=== PATIENT | female | born 1970 | race Caucasian/White ===

== ENCOUNTER 2021-09-21 13:33 | Emergency (ER) | payer MEDICARE, MEDICAID, SELFPAY ==
[2021-09-21 13:35] VITALS: BP 135/87; PULSE 69; RESP 16; TEMP 36.8; O2SAT 100; BMI 27.4
--- NOTE | 2021-09-21 13:48 | XR_ITS ---
WS: [email or web address] Right leg including the tibia and fibula, AP and lateral views, 09/21/2021 Clinical Data: pain/fall Comparison: None. Findings: No fractures or dislocations are seen. The tibia and fibula are intact. The soft tissues are normal. XR/XR tibia fibula RT 2V 08034 Impression: Negative for fracture.
--- NOTE | 2021-09-21 13:48 | XR_ITS ---
WS: [email or web address] Right ankle, AP and lateral views, 09/21/2021 Clinical Data: fall pain Comparison: None. Findings: No fractures or dislocations are seen. The ankle mortise is normal. The talus and calcaneus are unrem arkable. No soft tissue swelling over the medial or lateral malleolus is seen. XR/XR ankle RT 2V 84424 Impression: Negative right ankle.
--- NOTE | 2021-09-21 13:48 | CT_ITS ---
WS: [email or web address] CT HEAD NONCONTRAST HISTORY: fall TECHNIQUE: Contiguous axial imaging performed through the brain in 2.5 mm imaging. Bone and soft tiss ue windows. Sagittal and coronal reformats reviewed. All CT scans at [facility] use at least one of these dose optimization techniques: automated exposure control; mA and/or kV adjustment per pa tient size (includes targeted exams where dose is matched to clinical indication); or iterative recon struction. DLP: 811.2 mGy.cm COMPARISON: 10/09/2017 Large remote LEFT MCA territory infarct with volume loss and encephalomalacia. Significant progressio n of volume loss since 2018. Tiny lacunar infarct in the RIGHT caudate head and near the RIGHT occipi danielle lobe. These are not acute. Ventricles: Executive dilatation of the LEFT lateral ventricle due to volume loss and encephalomalac ia. No inferior displacement of cerebellar tonsils. Paranasal sinuses: As visualized are clear. Mastoid air cells: Well pneumatized. Calvarium and scalp: Skull is intact with no soft tissue edema or swelling. CT/CT head wo con* [id number] IMPRESSION: 1. No acute intracranial hemorrhage or edema. 2. Large prior LEFT MCA territory infarct with encephalomalacia and ex vacuole dilatation of the lateral ventricle.
--- NOTE | 2021-09-21 13:48 | XR_ITS ---
WS: [email or web address] Right foot, 3 views, 09/21/2021 Clinical Data: fall Comparison: None. Findings: No fractures or dislocations are seen. No bone destruction or erosion is noted. The joint spaces and soft tissues are normal. There is a flexion deformity of the right great toe and the right foot. XR/XR foot RT 2V 64281 Impression: Flexion of the right great toe and the right foot.
--- NOTE | 2021-09-21 13:48 | XR_ITS ---
WS: [email or web address] Right knee, AP and lateral views, 09/21/2021 Clinical Data: knee pain Comparison: None. Findings: No fractures or dislocations are seen. The joint spaces are normal. The patella is intact. The soft t issues are unremarkable. XR/XR knee RT 1-2V 30347 Impression: Negative right knee. Kellgren-Uzair Classification: grade 0 (none): definite absence of x-ray pauly nges of osteoarthritis
--- NOTE | 2021-09-21 13:49 | ECG_ITS ---
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 Measurements Intervals [place] Rate: 69 P: 63 FL: 162 QRS: 81 QRSD: 82 T: 83 QT: 444 QTc: 476 Interpretive Statements SINUS RHYTHM POSSIBLE RIGHT VENTRICULAR CONDUCTION DELAY [RSR (QR) IN V1/V2] ST DEVIATION AND MARKED T-WAVE ABNORMALITY, CONSIDER ANTERIOR ISCHEMIA [-0.5+ mV T-WAVE IN V3/V4] Compared to ECG 10/09/2017 15:16:11 T-wave abnormality now present Possible ischemia now present Electronically Signed On 09-22-2021 5:47:25 CDT by Ya Martinez M.D. [id number]
--- NOTE | 2021-09-21 13:52 | ED_ITS ---
HPI - General Adult General: Chief complaint: Extremity Injury, Lower Stated complaint: FALL Time Seen by Provider: 09/21/21 13:35 History of Present Illness: Patient is a 51-year-old female with history of previous CVA with right-sided hemiparesis, hypertension who presents to the ergency room for evaluation of fall. Patient tells me that she was try to get into her wheelchair when she slipped and fell. Patient complains of right ankle and right knee pain. Patient report hitting her head. Denies any LOC. Patient report feeling lightheaded prior to the episode of fall. Patient denies any anticoagulation use. No associated chest pain, shortness of breath, palpitation, nausea/vomiting, diarrhea melena/hematochezia or complaints. Onset: 9am Duration:once Location:home Severity:moderate Associated symptoms: Deny chest pain, dyspnea, nausea, rash, palpitations or vomiting Review of Systems Const: Denies: fever(s) or chills Eyes: Denies: change in vision ENMT: Denies: mouth pain Card: Denies: chest pain or palpitations Resp: Denies: dyspnea or non-productive cough GI: Denies: abdominal pain, nausea, vomiting or diarrhea : Denies: dysuria Musc: Denies: extremity pain Skin/Breast: Denies: rash or new lesions Neuro: Reports: other (+lightheadedness); Denies: weakness in extremities Psych: Reports: other (Normal mood) Byron/Lymph: Denies: easy bruising PFSH ED PFSH: Medical History CVA, old, aphasia 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 Family History Mother Stroke Social History Smoking and tobacco status: current every day smoker Quit status (tobacco): not considering quitting Smoking risk assessment/counseling performed?: Yes Tobacco counseling given: provider counseling Physical Exam Const: COMMON NORMALS: alert HENMT: COMMON NORMALS: atraumatic HEAD & SCALP: atraumatic MOUTH: moist mucous membranes not abnormal Eye: COMMON NORMALS: EOMs intact bilaterally and conjunctivae normal CONJUNCTIVA: Yes conjunctivae normal Neck/C-Spine: COMMON NORMALS: full ROM and supple Resp: COMMON NORMALS: normal respiratory effort and clear to auscultation bilaterally AUSCULTATION: clear to auscultation bilaterally Cardio: COMMON NORMALS: regular rate RATE: regular rate GI: COMMON NORMALS: Soft to palpation and non-tender PALPATION: Yes Soft to palpation Extremity: COMMON NORMALS: full ROM NARRATIVE EXTREMITY EXAM: + Mild right ankle swelling and tenderness to palpation, neurovascular exam intact on the affected extremity Neuro: SENSORIUM/ORIENTATION: Yes alert OTHER: + Baseline right-sided weakness and hemiparesis Psych: COMMON NORMALS: speech normal SPEECH: Yes normal speech MOOD & AFFECT: Yes euthymic mood Course Vital Signs: Vital signs: Vital Signs Temperature 98.2 F 09/21/21 13:35 Pulse Rate 69 09/21/21 13:35 Respiratory Rate 16 09/21/21 13:35 Blood Pressure 135/87 09/21/21 13:35 Pulse Oximetry 100 09/21/21 13:35 MDM - General Adult Medical Decision Making 51-year-old female history of right-sided hemiparesis from prior CVA, hypertension presenting to the emergency room for evaluation of fall. Unclear if it is mechanical. Patient has mild tenderness palpation of the right ankle with mild swelling. X-ray of the ankle, tib-fib, knee negative for any acute pathology. CT head negative for any acute finding other than chronic left MCA s troke. Patient no complaints of chest pain. Troponin within normal limit. Patient can have T wave versions in V1-V3. I discussed this with patient and have given patient close follow-up with cardiology outpatient for further evaluation of her EKG. As patient did not have any chest pain, troponin within normal limit, do not suspect ACS at this time. I have given patient follow up with our manager of case management to be seen by our outpatient Cardiology for further evaluation of EKG abnormality. Patient aware of a call from our manager of case management to schedule for appointment(s) and verbalizes understanding of the importance of following up. Rx: Tylenol, lidocaine patch, and menthol PRN pain Disposition: Discharge. Patient counseled regarding diagnostic impression, treatment plan. Patient given ED strict return precautions to return for continuation, worsening, or development of new symptoms. Instructed to f/u w/ PCP regarding symptoms today. Patient verbalized understanding. Patient is given written instructions to repeat x-ray should she have further pain in the ankle knee in 1 week. Lab Data : 09/21/21 14:10 09/21/21 15:12 Radiology Impressions Ankle X-Ray 09/21/21 13:48 Impression: Negative right ankle. Foot X-Ray 09/21/21 13:48 Impression: Flexion of the right great toe and the right foot. Head CT 09/21/21 13:48 IMPRESSION: 1. No acute intracranial hemorrhage or edema. 2. Large prior LEFT MCA territory infarct with encephalomalacia and ex vacuole dilatation of the lateral ventricle. Knee X-Ray 09/21/21 13:48 Impression: Negative right knee. Kellgren-Uzair Classification: grade 0 (none): definite absence of x-ray changes of osteoarthritis Tibia/Fibula X-Ray 09/21/21 13:48 Impression: Negative for fracture. Laboratory Results WBC 9.1 10^3/uL (4.0-10.0) 09/21/21 14:10 RBC 4.12 10^6/uL (4.1-5.3) 09/21/21 14:10 Hgb 12.3 g/dL (11.5-15.3) 09/21/21 14:10 Hct 38.6 % (37.0-47.0) 09/21/21 14:10 MCV 93.7 fl (81-99) 09/21/21 14:10 MCH 29.9 pg (28.0-34.0) 09/21/21 14:10 MCHC 31.9 g/dL (30.0-36.0) 09/21/21 14:10 RDW 13.6 % (12.1-15.1) 09/21/21 14:10 Plt Count 187 10^3/cmm (130-400) 09/21/21 14:10 MPV 11.3 fL (7.4-10.4) H 09/21/21 14:10 Neut % (Auto) 60.7 % 09/21/21 14:10 Lymph % (Auto) 27.4 % 09/21/21 14:10 Davis % (Auto) 8.0 % 09/21/21 14:10 Eos % (Auto) 2.7 % 09/21/21 14:10 Baso % (Auto) 0.9 % 09/21/21 14:10 Neut # (Auto) 5.53 10^3/uL (1.8-7.7) 09/21/21 14:10 Lymph # (Auto) 2.5 10^3/uL (0.8-4.8) 09/21/21 14:10 Davis # (Auto) 0.7 10^3/uL (0.2-0.9) 09/21/21 14:10 Eos # (Auto) 0.3 10^3/uL (0.0-0.8) 09/21/21 14:10 Baso # (Auto) 0.1 10^3/uL (0.0-0.1) 09/21/21 14:10 Nucleated RBC % (auto) 0 % 09/21/21 14:10 Nucleated RBCs # 0.0 /100WBC 09/21/21 14:10 Sodium 137 mmol/L (136-145) 09/21/21 15:12 Potassium 5.2 mmol/L (3.5-5.1) H 09/21/21 15:12 Chloride 102 mmol/L (98-107) 09/21/21 15:12 Carbon Dioxide 26 mmol/L (22-29) 09/21/21 15:12 Anion Gap 14.2 (5-19) 09/21/21 15:12 BUN 19 mg/dL (6-20) 09/21/21 15:12 Creatinine 1.3 mg/dL (0.5-0.9) H 09/21/21 15:12 GFR Calculation 43.0 mL/min (90-130) L 09/21/21 15:12 Glucose 104 mg/dL (65-115) 09/21/21 15:12 Calculated Osmolality 287 mOsm/kg (285-295) 09/21/21 15:12 Calcium 9.5 mg/dL (8.5-10.5) 09/21/21 15:12 Troponin T Baseline 10 ng/L (0-10) 09/21/21 15:12 Imaging Data Other Imaging: Radiologist's impression: [address] [address] XRay Report Signed Patient: Erin Salazar Unit #: [id number] : 1970 Age/Sex: 51 / F ADM Date: 09/21/21 Loc: ER Room/Bed: Attending Dr: Ordering Provider/Ordering MD: Loida Chandler MD Date of Service: 09/21/21 Procedure(s): XR tibia fibula RT 2V 97274 Accession Number(s): [id number] Report Number: [id number] WS: [email or web address] Right leg including the tibia and fibula, AP and lateral views, 09/21/2021 Clinical Data: pain/fall Comparison: None. Findings: No fractures or dislocations are seen. The tibia and fibula are intact. The soft tissues are normal. XR/XR tibia fibula RT 2V 94079 Impression: Negative for fracture. ? Dictated By: Idalmis Nair MD Signed By: Idalmis Nair MD Signed Date/Time: 09/21/211430 DD/ [address] [address] XRay Report Signed Patient: Erin Salazar Unit #: [id number] : 1970 Age/Sex: 51 / F ADM Date: 09/21/21 Loc: ER Room/Bed: Attending Dr: Ordering Provider/Ordering MD: Loida Chandler MD Date of Service: 09/21/21 Procedure(s): XR knee RT 1-2V 36223 Accession Number(s): [id number] Report Number: [id number] WS: [email or web address] Right knee, AP and lateral views, 09/21/2021 Clinical Data: knee pain Comparison: None. Findings: No fractures or dislocations are seen. The joint spaces are normal. The patella is intact. The soft tissues are unremarkable. XR/XR knee RT 1-2V 22303 Impression: Negative right knee. ? Kellgren-Uzair Classification: grade 0 (none): definite absence of x-ray changes of osteoarthritis ? Dictated By: Idalmis Nair MD Signed By: Idalmis Nair MD Signed Date/Time: 09/21/211441 DD/ [address] [place] [id number] CT Scan Report Signed Patient: Erin Salazar Unit #: [id number] : 1970 Age/Sex: 51 / F ADM Date: 09/21/21 Loc: ER Room/Bed: Attending Dr: Ordering Provider/Ordering MD: Loida Chandler MD Date of Service: 09/21/21 Procedure(s): CT head wo con* 57811 Accession Number(s): [id number] Report Number: [id number] WS: [email or web address] CT HEAD NONCONTRAST HISTORY: fall TECHNIQUE: Contiguous axial imaging performed through the brain in 2.5 mm imaging. Bone and soft tissue windows. Sagittal and coronal reformats reviewed.? All CT scans at [facility] use at least one of these dose optimization techniques: automated exposure control; mA and/or kV adjustment per patient size (includes targeted exams where dose is matched to clinical indication); or iterative reconstruction. DLP: 811.2 mGy.cm COMPARISON: 10/09/2017 Large remote LEFT MCA territory infarct with volume loss and encephalomalacia. Significant progression of volume loss since 2018. Tiny lacunar infarct in the RIGHT caudate head and near the RIGHT occipital lobe. These are not acute. Ventricles:? Executive dilatation of the LEFT lateral ventricle due to volume loss and encephalomalacia. No inferior displacement of cerebellar tonsils. Paranasal sinuses: As visualized are clear. Mastoid air cells: Well pneumatized. Calvarium and scalp: Skull is intact with no soft tissue edema or swelling. CT/CT head wo con* [id number] IMPRESSION: ? 1.? No acute intracranial hemorrhage or edema. 2.? Large prior LEFT MCA territory infarct with encephalomalacia and ex vacuole dilatation of the lateral ventricle. ? Dictated By: Sylvie Vieira DO Signed By: Sylvie Vieira DO Signed Date/Time: 09/21/211448 DD/ [address] [place] [address] XRay Report Signed Patient: Erin Salazar Unit #: [id number] : 1970 Age/Sex: 51 / F ADM Date: 09/21/21 Loc: ER Room/Bed: Attending Dr: Ordering Provider/Ordering MD: Loida Chandler MD Date of Service: 09/21/21 Procedure(s): XR foot RT 2V 63516 Accession Number(s): [id number] Report Number: [id number] WS: [email or web address] Right foot, 3 views, 09/21/2021 Clinical Data: fall Comparison: None. Findings: No fractures or dislocations are seen. No bone destruction or erosion is noted. The joint spaces and soft tissues are normal. There is a flexion deformity of the right great toe and the right foot. XR/XR foot RT 2V 57597 Impression: Flexion of the right great toe and the right foot. ? Dictated By: Idalmis Nair MD Signed By: Idalmis Nair MD Signed Date/Time: 09/21/21 143 DD/ [address] [address] XRay Report Signed Patient: Erin Salazar Unit #: [id number] : 1970 Age/Sex: 51 / F ADM Date: 09/21/21 Loc: ER Room/Bed: Attending Dr: Ordering Provider/Ordering MD: Loida Chandler MD Date of Service: 09/21/21 Procedure(s): XR ankle RT 2V 60658 Accession Number(s): [id number] Report Number: [id number] WS: [email or web address] Right ankle, AP and lateral views, 09/21/2021 Clinical Data: fall pain Comparison: None. Findings: No fractures or dislocations are seen. The ankle mortise is normal. The talus and calcaneus are unremarkable. No soft tissue swelling over the medial or lateral malleolus is seen. XR/XR ankle RT 2V 92053 Impression: Negative right ankle. ? Dictated By: Idalmis Nair MD Signed By: Idalmis Nair MD Signed Date/Time: 09/21/21 143 DD/ 1430 Discharge Plan Discharge Patient Disposition: Home Clinical Impression: Fall Condition: Stable Prescriptions: New acetaminophen 500 mg tablet 500 mg PO Q6H PRN (Reason: pain) 5 Days Qty: 20 0RF lidocaine 5 % adhesive patch,medicated 1 patch topical DAILY PRN (Reason: pain) 30 Days Qty: 30 0RF Rx Instructions: leave on most painful area for up to 12 hrs Biofreeze (menthol) 5 % gel 1 ea topical BID PRN (Reason: pain) 10 Days Qty: 1 0RF No Action (DME) custom molded AFO to the right See Rx Instructions .Route .MEDSUPPLY Qty: 1 0RF Rx Instructions: As directed by [employer] (DME) custom molded AFO to the right See Rx Instructions .Route .MEDSUPPLY Qty: 1 0RF Rx Instructions: As directed by [facility] nystatin [Nystop] 100,000 unit/gram powder See Rx Instructions .ROUTE .COMPLEX Qty: 60 0RF Dose Instruction: APPLY 1 APPLICATION TOPICALLY TWICE DAILY Rx Instructions: APPLY 1 APPLICATION TOPICALLY TWICE DAILY azithromycin [Zithromax Z-Ananda] 250 mg tablet See Rx Instructions PO .COMPLEX Qty: 6 0RF Rx Instructions: take 500 mg today (day 1), then 250 mg for 4 days (days 2-5) PO clotrimazole [Antifungal (clotrimazole)] 1 % cream 1 applic topical BID 28 Days Qty: 30 0RF (DME) wheelchair See Rx Instructions .Route .MEDSUPPLY Qty: 1 0RF Rx Instructions: As directed fluoxetine 20 mg capsule See Rx Instructions .ROUTE .COMPLEX Qty: 90 0RF Dose Instruction: Take 1 capsule by mouth once daily Rx Instructions: Take 1 capsule by mouth once daily atorvastatin 80 mg tablet See Rx Instructions .ROUTE .COMPLEX Qty: 90 0RF Dose Instruction: Take 1 tablet by mouth once daily Rx Instructions: Take 1 tablet by mouth once daily fluoxetine 10 mg capsule See Rx Instructions .ROUTE .COMPLEX Qty: 90 0RF Dose Instruction: Take 1 capsule by mouth once daily Rx Instructions: Take 1 capsule by mouth once daily metoprolol tartrate 25 mg tablet See Rx Instructions .ROUTE .COMPLEX Qty: 90 0RF Dose Instruction: Take 1 tablet by mouth once daily Rx Instructions: Take 1 tablet by mouth once daily fluconazole 150 mg tablet See Rx Instructions .ROUTE .COMPLEX Qty: 7 0RF Dose Instruction: TAKE 1 TABLET BY MOUTH EVERY 3 DAYS FOR 2 DOSES Rx Instructions: TAKE 1 TABLET BY MOUTH EVERY 3 DAYS FOR 2 DOSES Discharge Orders: Discharge ED (Routine); Ordered 09/21/21 Ordered By: Loida Chandler Referrals: Vida Hollingsworth FNP [Primary Care Provider] - Steven Barone FNP [Nurse Practitioner] - Discharge Diet: Advance as tolerated Discharge Activity: Increase activity as tolerated Patient Instructions: Fall Prevention (ED) Activity Restrictions/Additional Instructions: Please follow-up with your primary care provider in 1 week if should you have further ankle pain or knee pain as you may need a repeat x-ray to determine whether he have a fracture. Come back to the emergency room have any new or concerning complaints. Our manager of case management will have you follow-up with Cardiology in the next few days for your EKG findings. You would be expected to have a phone call with our manager of case management who will put you on the schedule. You can expect a call from us in the next 2-3 days. If you don't hear from us, call us back in the emergency room at [phone]. Come back to the emergency room if your chest pain worsens, have any fever or chills, worsening shortness of breath, worsening exertional lightheadedness, or any new or concerning complaints. 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
[2021-09-21 14:29] LABS: Basophils # 0.1 10^3/uL (0.0-0.1); Basophils % 0.9 %; Eosinophils # 0.3 10^3/uL (0.0-0.8); Eosinophils % 2.7 %; Hematocrit 38.6 % (37.0-47.0); Hemoglobin 12.3 g/dL (11.5-15.3); Lymphocytes # 2.5 10^3/uL (0.8-4.8); Lymphocytes % 27.4 %; Mean Corpuscular HGB Conc 31.9 g/dL (30.0-36.0); Mean Corpuscular Hemoglobin 29.9 pg (28.0-34.0); Mean Corpuscular Volume 93.7 fl (81-99); Mean Platelet Volume 11.3 fL (7.4-10.4); Monocytes # 0.7 10^3/uL (0.2-0.9); Neutrophils # 5.53 10^3/uL (1.8-7.7); Neutrophils % 60.7 %; Nucleated Red Blood Cells % 0 %; Platelet Count 187 10^3/cmm (130-400); Red Blood Count 4.12 10^6/uL (4.1-5.3); Red Cell Distribution Width 13.6 % (12.1-15.1); White Blood Count 9.1 10^3/uL (4.0-10.0)
[2021-09-21 15:41] LABS: Troponin(5th) Baseline 10 ng/L (0-10)
[2021-09-21 15:42] LABS: Anion Gap 14.2 (5-19); Blood Urea Nitrogen 19 mg/dL (6-20); Calcium 9.5 mg/dL (8.5-10.5); Carbon Dioxide 26 mmol/L (22-29); Chloride 102 mmol/L (98-107); Glucose 104 mg/dL (65-115); Osmolality Calculated 287 mOsm/kg (285-295); Potassium 5.2 mmol/L (3.5-5.1); Sodium 137 mmol/L (136-145)
--- NOTE | 2021-09-21 15:49 | ECG_ITS ---
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 Measurements Intervals [place] Rate: 69 P: 64 ID: 167 QRS: 82 QRSD: 86 T: 89 QT: 435 QTc: 467 Interpretive Statements SINUS RHYTHM POSSIBLE RIGHT VENTRICULAR CONDUCTION DELAY [RSR (QR) IN V1/V2] ST DEVIATION AND MARKED T-WAVE ABNORMALITY, CONSIDER ANTERIOR ISCHEMIA [-0.5+ mV T-WAVE IN V3/V4] Compared to ECG 09/21/2021 13:00:32 No significant changes Electronically Signed On 09-22-2021 6:02:22 CDT by Ya Martinez M.D. [email or web address]/[id number]
--- NOTE | 2021-09-22 12:34 | DCPLANNER ---
Addendum entered by Medina Barth 11/28/21 13:19: Patient had a follow up appointment scheduled for 11.20.21 with heart care - patient did not attend appointment. Addendum entered by Medina Barth 10/26/21 17:06: Patient has a follow up appointment scheduled for Saturday, November 20, 2021 at 11:[address] Martinez at [facility]. Clinic will call patient with appointment information. Original Note: partner marketing manager had message to schedule a follow up appointment for patient with cardiology. partner marketing manager sent patients information to the front office staff at [facility]. Patients information will be printed and reviewed. Clinic will call patient with appointment information.
== END 2021-09-21 20:20 | disposition home or self-care (01) ==
PROVIDERS: Emergency Provider Emergency Medicine; PCP Nurse Practitioner Family
DX: I69.351 Hemiplegia and hemiparesis following cerebral infarction affecting right dominant side (principal); M25.571 Pain in right ankle and joints of right foot; M25.561 Pain in right knee; I10 Essential (primary) hypertension; W01.0XXA Fall on same level from slipping, tripping and stumbling without subsequent striking against object, initial encounter
CPT/HCPCS: 70450; 73560; 73590; 73600; 73620; 80048; 84484; 85025; 93005; 99285

== ENCOUNTER → 2022-06-06 08:36 | Outpatient (BNVA) | payer MEDICARE, MEDICAID, SELFPAY | PROVIDERS: PCP Nurse Practitioner Family; Visit Provider Nurse Practitioner Family | DX: I10 Essential (primary) hypertension (principal); I69.961 Other paralytic syndrome following unspecified cerebrovascular disease affecting right dominant side | CPT/HCPCS: 80053; 80061 ==

== ENCOUNTER → 2023-02-05 09:24 | Outpatient (BNVA) | payer MEDICARE, MEDICAID, SELFPAY | PROVIDERS: PCP Nurse Practitioner Family; Visit Provider Nurse Practitioner Family | DX: E78.5 Hyperlipidemia, unspecified (principal) | CPT/HCPCS: 80053; 80061 ==

== ENCOUNTER 2023-09-25 10:00 | Inpatient (IN) | payer MEDICARE, MEDICAID, SELFPAY ==
[2023-09-25] VITALS (72 sets, daily range): BP systolic 70–129; BP diastolic 30–106; PULSE 111–150; RESP 11–24; TEMP 35.8–36.2; O2SAT 33–100
--- NOTE | 2023-09-25 10:07 | CTR_ITS ---
PROCEDURE INFORMATION: Exam: CT Head Without Contrast Exam date and time: 09/25/2023 10:12 AM Age: 53 years old Clinical indication: Stroke-like symptoms; Speech disturbance; Additional info: Symptoms of acute stroke TECHNIQUE: Imaging protocol: Computed tomography of the head without contrast. Radiation optimization: All CT scans at this facility use at least one of these dose optimization techniques: automated exposure control; mA and/or kV adjustment per patient size (includes targeted exams where dose is matched to clinical indication); or iterative reconstruction. Other technique: STROKE PROTOCOL was implemented. COMPARISON: CT head wo con* [id number] 09/21/2021 2:33 PM RADIATION DOSE METRICS: Total DLP (mGy-cm): 3.7 FINDINGS: Brain: Redemonstrated encephalomalacia in the left MCA territory. There appears to be mildly increased hypodensity in the left parietal region compared to 09/21/2021. No acute hemorrhage. No mass effect or midline shift. Cerebral ventricles: No ventriculomegaly. Paranasal sinuses: Visualized sinuses are unremarkable. No fluid levels. Mastoid air cells: Visualized mastoid air cells are well aerated. Bones: Unremarkable. No acute fracture. Soft tissues: Unremarkable. CT/CT head thrombolytic [id number] IMPRESSION: There appears to be mildly increased hypodensity in the left parietal region compared to 09/21/2021, which may reflect an area of age-indeterminate ischemia. MRI could further evaluate for acute ischemia. No acute hemorrhage. ASSESSMENT: ASPECTS ([place] Stroke Program Early CT Score) is 4.
--- NOTE | 2023-09-25 10:07 | ECG_ITS ---
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 Measurements Intervals [place] Rate: 113 P: 0 ID: 0 QRS: 112 QRSD: 86 T: 92 QT: 359 QTc: 494 Interpretive Statements ATRIAL FIBRILLATION WITH RAPID VENTRICULAR RESPONSE POSSIBLE RIGHT VENTRICULAR HYPERTROPHY [SOME/ALL OF: PROMINENT R IN V1, LATE TRANSITION, RAD, CHENTE, SSS] MODERATE ST DEPRESSION [0.05+ mV ST DEPRESSION] Compared to ECG 09/21/2021 14:40:14 Atrial abnormality now present ST (T wave) deviation now present Sinus rhythm no longer present T-wave abnormality no longer present Possible ischemia no longer present Electronically Signed On 09-27-2023 13:28:30 CDT by Salty Whyte M.D. [id number]
--- NOTE | 2023-09-25 10:14 | ED_ITS ---
HPI - General Adult 2 General: Chief complaint: Neuro Symptoms/Deficit Stated complaint: Abd Pain Time Seen by Provider: 09/25/23 10:06 Source: patient Mode of arrival: EMS History of Present Illness: 53-year-old female presents emergency ro om initially with complaints of abdominal pain. She has had abdominal pain last couple of days she was seen by home health today they were concerned about her abdominal pain and sent her to the emergency room. When the nurse seen her initially she was enunciating clearly was able to give her name and birthdate and answer questions when she went back in the room the patient had begun to mumble and cannot give understandable answers. Stroke alert was called Dr. Anand seen and patient ultimately decided not to give tPA as patient was having waxing and waning symptoms. Her abdominal pain was worked up further see below. She denies chest pain and abdominal pain has been ongoing for the last 3 days. No family members were present initially to assist with history on the patient. 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, old, aphasia Family History Mother Stroke Social History Smoking and tobacco/nicotine status: current every day tobacco/nicotine user Quit status (tobacco/nicotine): not considering quitting Physical Exam 2 Const: GENERAL APPEARANCE: cooperative ORIENTATION/CONSCIOUSNESS: Yes awake HENMT: COMMON NORMALS: normocephalic, atraumatic and hearing grossly normal bilaterally HEAD & SCALP: normocephalic and atraumatic Resp: COMMON NORMALS: normal respiratory effort, No retractions, No use of accessory muscles and clear to auscultation bilaterally AUSCULTATION: clear to auscultation bilaterally Cardio: COMMON NORMALS: regular rhythm and No murmurs present (Cardio) R ATE: tachycardic RHYTHM: regular rhythm GI: COMMON NORMALS: No hepatosplenomegaly present AUSCULTATION: Yes normoactive bowel sounds PALPATION: Yes Tenderness to palpation present (GI) Details: RUQ (/Epigastric), No Guarding due to palpation present (GI) and Yes No hepatosplenomegaly present Extremity: COMMON NORMALS: normal to inspection, capillary refill normal, no clubbing, cyanosis or edema, no calf tenderness and no pedal edema Skin: COMMON NORMALS: no rashes or lesions noted GENERAL SKIN EXAM: no rashes or lesions noted Procedures Central Line Placement Right IJ: Patient Placed on Monitor/Pulse Ox: Yes MD Prep: mask, gown and gloves Central Line Prep: Chlorhexidine scrub Local Anesthetic: lidocaine 1% Amount of anesthesia used (mL): 4 Ultrasound Used for Placement: Yes Central Line Lumen Inserted: triple Post Procedure: sutured in place, good blood return, all ports aspirated, flushed, capped and sterile dressing applied Post Procedure X-Ray: tip of catheter in good position Patient Tolerated Procedure: well Complications: none Intubation sedative: Etomidate Mg Given: 20 paralytic: Vecuronium Mg Given: 10 Laryngoscope: fiber optic video scope ET Tube Size: 8 ET Tube Uncuffed: No Tube Secured Depth (cm): 21 Tube Secured Location: teeth Tube Placement Confirmation: visualized tube passing through cords, equal breath sounds bilaterally, no breath sounds over epigastrium and confirmation by capnometry Patient Tolerated Procedure: well Intubation Complications: none Additional Comments: After chest x-ray ET tube was advanced on CT it had been advanced too far was retracted 3 cm good breath sounds bilaterally even while the tube was at the shaan. Course 2 Vital Signs: Vital signs: Vital Signs Pulse Rate 113 H 09/25/23 16:55 Respiratory Rate 16 09/25/23 16:55 Blood Pressure 129/106 09/25/23 16:45 Pulse Oximetry 67 L 09/25/23 16:55 Oxygen Delivery Me thod Room Air 09/25/23 10:47 Fraction of Inspir ed Oxygen 100 09/25/23 14:08 [facility] - General Adult Medical Decision Making 09/25/2023 3:15 PM Patient continued to deteriorate and did not respond to fluids. She has signs of cholecystitis there is no sign of obstruction in the gallbladder. There is no dilation of the common bile duct with intrahepatic ducts. We consented the patient on a central line went to put it and she got very agitated during placement of central line she is given milligram Ativan as we are nearing completion with a central line she began to have sonorous respirations. We quickly secured the central line. Patient did not respond further and began to have worsening respirations and some mottling. We had difficult time securing blood pressure. Patient was emergently intubated by RSI. There is no family present and she does not have a CODE STATUS on her chart. Patient is intubated without difficulty chest x-ray confirmed placement of ET tube and central line. We did not need any further sedation as patient continues to be nonresponsive. Blood gas was done with the assistance of ultrasound to identify artery in the arm blood gas results showed significant acidosis. We continued to titrate up on pressors added vasopressin. Suspect patient may have thrown a PE with her rapid decompensation. We had discussed with Dr. Irving and Dr. Velasquez about admitting her to ICU for sepsis and acute cholecystitis. Admission on hold while we further evaluate. Will go ahead with a CTA of the chest to evaluate for PE. I contacted the significant other again advised him of the patient's worsening condition. He stated she would not want any further aggressive measures taken. While he would did not request withdrawal of life support did not want us to do any further resuscitative efforts in terms of CPR or ACLS protocols. He is going to contact the siblings of the patient to reach out to us as well. I did encourage the significant other to come to the hospital to see the patient he asked that we contact him once the CT of the chest was done. CTA of the chest did not show acute PE but does only really good study centrally. There is a lot of right heart strain. She has not responded to pressors we have titrated up on Levophed add vasopressin now added epinephrine as well. Is doing very difficult to get peripheral sats or peripheral blood pressures. Family reported they want her add Do Not Recussitate they do not wish to withdraw life support at this time did not want any further aggressive interventions. Dr. Menjivar was consulted for critical care he agreed with the current treatments recommended continuing pressors and antibiotics. Additionally recommended a echocardiogram we did recommend to go ahead and proceed with heparin weight-based protocol he is suspicious as well of a PE especially with the right heart strain and sudden decompensation. I think the root cause of all her issues at this point is septic shock from her gallbladder she may have a ascending cholangitis although there is no dilation of intrahepatic or common bile duct at this point. On the CT there also appears to be some peripancreatic inflammation although her lipase is not elevated yet. We discussed with the significant other who is at the bedside. He is aware of her prognosis which is very poor at this point. Will admit to Dr. Victoria orders written Dr. Menjivar to consult. Medical Records I reviewed the patient's medical records. Lab Data I reviewed the patient's lab results. 09/25/23 10:30 09/25/23 10:[address] 09/25/23 10:07 IMPRESSION: There appears to be mildly increased hypodensity in the left parietal region compared to 09/21/2021, which may reflect an area of age-indeterminate ischemia. MRI could further evaluate for acute ischemia. No acute hemorrhage. ASSESSMENT: ASPECTS ([place] Stroke Program Early CT Score) is 4. Abdomen/Pelvis CT 09/25/23 10:39 IMPRESSION: Some rounded areas of consolidation in the bilateral lower lobes may reflect pneumonia. Otherwise, no acute findings. Gallbladder Ultrasound 09/25/23 11:26 IMPRESSION: 1. Mild thickening of the gallbladder nolasco with minimal edema. Early acute cholecystitis not excluded. Single 2 mm stone and sludge seen in the neck of the gallbladder. No para cholecystic fluid. No intra or extrahepatic ductal dilatation. 2. Incidental finding of moderate atrophy of the RIGHT kidney. Chest X-Ray 09/25/23 13:39 IMPRESSION: 1. ET tube in satisfactory position. RIGHT sided IJ line ending in the RIGHT atrium. 2. Cardiac enlargement unchanged. No acute finding. Chest CTA 09/25/23 14:36 IMPRESSION: 1. Limited study. No obvious pulmonary embolism seen. 2. Tip of endotracheal tube projects at origin right mainstem bronchus. 3. Cardiomegaly. Small amount of pericardial fluid. Prominent left atrium. Extensive reflux, enhancement of contrast material into inferior vena cava, hepatic veins suggesting right heart dysfunction. Correlate for pulmonary arterial hypertension. 4. Pulmonary interstitial and airspace opacities. Patchy ground-glass opacities portions of lungs bilaterally. Infiltrate and/or atelectasis lower lobes, lung bases bilaterally. Configuration left lower lobe possibly due to pulmonary edema, infiltrates, atelectasis, scarring, but 4 cm cavitating lesion or other process not excluded. 5. Haziness, stranding, fluid of soft tissues, ascites, correlate for congestive heart failure or other fluid overload condition. 6. Gallbladder ill-defined, but evidence of marked gallbladder wall thickening and/or edema with mildly dense material within gallbladder, slight ascites, pericholecystic fluid. Correlate for cholecystitis, acute and/or chronic. Neoplasm or other process possible. Common duct not well defined. Correlation with ultrasound scan and/or MRI with MRCP recommended. 7. Peripancreatic fluid. Correlate for pancreatitis or other process. 8. Central venous line partially included, appearing to follow right internal jugular venous route with tip projecting right atrium. 9. Evidence of lymphadenopathy. 10. Please see body of report. ADDENDUM: 09/25/23 [id number] COMMENT: THIS REPORT CONTAINS FINDINGS THAT MAY BE CRITICAL TO PATIENT CARE. The exam findings were verbally communicated by me to NEHEMIAH BLANTON via telephone conference at 4:24 PM CDT on 09/25/2023. The findings were acknowledged and understood. Laboratory Results WBC 11.18 10^3/uL (3.29-11.43) 09/25/23 10:30 RBC 4.03 10^6/uL (3.85-5.65) 09/25/23 10:30 Hgb 11.10 g/dL (11.27-16.99) L 09/25/23 10:30 Hct 38.4 % (36-47) 09/25/23 10:30 MCV 95.3 fl (85-98) 09/25/23 10:30 MCH 27.5 pg (27-33) 09/25/23 10:30 MCHC 28.9 g/dL (30-55) L 09/25/23 10:30 RDW 20.3 % (12.1-15.1) H 09/25/23 10:30 Plt Count 119 10^3/cmm (157-399) L 09/25/23 10:30 MPV 11.6 fL (7.4-10.4) H 09/25/23 10:30 Neut % (Auto) 75.6 % 09/25/23 10:30 Lymph % (Auto) 13.9 % 09/25/23 10:30 [place] % (Auto) 8.6 % 09/25/23 10:30 Eos % (Auto) 0.8 % 09/25/23 10:30 Baso % (Auto) 0.5 % 09/25/23 10:30 Neut # (Auto) 8.45 10^3/uL (1.8-7.7) H 09/25/23 10:30 Lymph # (Auto) 1.6 10^3/uL (0.8-4.8) 09/25/23 10:30 [place] # (Auto) 1.0 10^3/uL (0.2-0.9) H 09/25/23 10:30 Eos # (Auto) 0.1 10^3/uL (0.0-0.8) 09/25/23 10:30 Baso # (Auto) 0.1 10^3/uL (0.0-0.1) 09/25/23 10:30 Nucleated RBC % (auto) 6.8 % 09/25/23 10:30 Nucleated RBCs # 0.8 /100WBC 09/25/23 10:30 PT 20.10 SECONDS (12.1-14.9) H 09/25/23 10:30 INR 1.65 (0.8-1.2) H 09/25/23 10:30 APTT 39.1 SECONDS (23.9-36.7) H 09/25/23 10:30 Specimen Type Arterial 09/25/23 16:35 Sample Site Radial, right 09/25/23 16:35 ABG pH 7.01 (7.35-7.45) L* 09/25/23 16:35 ABG pCO2 50.4 mmHg (35-45) H 09/25/23 16:35 ABG pO2 31.6 mmHg (80.0-100.0) L* 09/25/23 16:35 ABG PO2/FiO2 Ratio 0 09/25/23 16:35 ABG HCO3 12.6 mmol/L (22-26) L 09/25/23 16:35 ABG O2 Saturation 34.3 09/25/23 16:35 ABG Base Excess -18.3 mmol/L (-2.0-2.0) L 09/25/23 16:35 Dontrell Test Pos 09/25/23 16:35 A-a O2 Gradient 81.2 mmHg (5-10) H 09/25/23 16:35 Hematocrit 37.9 % (37-47) 09/25/23 16:35 Hgb O2 Saturation 33.7 % (95-100) L 09/25/23 16:35 Carboxyhemoglobin 1.0 %THgb (0.4-20.1) 09/25/23 16:35 Methemoglobin 0.8 % (0.4-1.5) 09/25/23 16:35 Total Hemoglobin 12.4 g/dL (12-16) 09/25/23 16:35 Sodium 132.0 mmol/L (131-143) 09/25/23 16:35 Potassium 5.4 mmol/L (3.5-5.0) H 09/25/23 16:35 Glucose 157.0 mg/dL (70-115) H 09/25/23 16:35 Ionized Calcium 1.1 mmol/L (1.1-1.4) 09/25/23 16:35 O2 Delivery Device Vent 09/25/23 16:35 FiO2 100.0 % 09/25/23 16:35 Tidal Volume 0.45 09/25/23 16:35 PEEP 6.0 cmH20 09/25/23 16:35 Telegraph Office Telephone Clerk ID Gd 09/25/23 16:35 Sodium 135 mmol/L (136-145) L 09/25/23 10:30 Potassium 5.1 mmol/L (3.5-5.1) 09/25/23 10:30 Chloride 100 mmol/L (98-107) 09/25/23 10:30 Carbon Dioxide 15 mmol/L (22-29) L 09/25/23 10:30 Anion Gap 25.1 (5-19) H 09/25/23 10:30 BUN 87 mg/dL (6-20) H* D 09/25/23 10:30 Creatinine 2.8 mg/dL (0.5-0.9) H 09/25/23 10:30 GFR Calculation 17.6 mL/min (90-130) L 09/25/23 10:30 Glucose 112 mg/dL (65-115) 09/25/23 10:30 POC Glucose 128 mg/dL (70-110) H 09/25/23 10:22 Calculated Osmolality 307 mOsm/kg (285-295) H 09/25/23 10:30 Lactic Acid 3.0 mmol/L (0.5-2.2) H 09/25/23 12:09 Lactic Acid (Sepsis) 7.4 mmol/L (0.5-2.2) H* 09/25/23 14:45 Calcium 7.4 mg/dL (8.5-10.5) L 09/25/23 10:30 Total Bilirubin 1.7 mg/dL (0.15-1.2) H 09/25/23 10:30 AST 898 U/L (0-32) H 09/25/23 10:30 ALT 884 U/L (0-33) H 09/25/23 10:30 Alkaline Phosphatase 345 U/L (35-105) H 09/25/23 10:30 Total Protein 6.1 g/dL (6.6-8.7) L 09/25/23 10:30 Albumin 3.0 g/dL (3.5-5.2) L 09/25/23 10:30 Globulin 3.1 g/dL (1.3-4.6) 09/25/23 10:30 Lipase 59 U/L (13-60) 09/25/23 10:30 Urine Color Yellow (Yellow) 09/25/23 11:45 Urine Appearance Cloudy (CLEAR) A 09/25/23 11:45 Urine pH 5 (5-7) 09/25/23 11:45 Ur Specific [place] 1.020 (1.005-1.030) 09/25/23 11:45 Urine Protein 1+ (Negative) H 09/25/23 11:45 Urine Glucose (UA) Norm (Normal) 09/25/23 11:45 Urine Ketones Negative (Negative) 09/25/23 11:45 Urine Blood 2+ (Negative) H 09/25/23 11:45 Urine Nitrate Negative (Negative) 09/25/23 11:45 Urine Bilirubin Neg (Negative) 09/25/23 11:45 Urine Urobilinogen 1 mg/dL (Negative) H 09/25/23 11:45 Ur Leukocyte Esterase 1+ (Negative) H 09/25/23 11:45 Urine RBC 0-4 /hpf (0-2) H 09/25/23 11:45 Urine WBC 0-4 /hpf (0-5) H 09/25/23 11:45 Ur Squamous Epith Cells 0-4 /hpf (0-5) H 09/25/23 11:45 Amorphous Sediment Not Reportable 09/25/23 11:45 Urine Bacteria 1+ /hpf (NONE) H 09/25/23 11:45 Urine Opiates Screen Negative ng/mL (Negative) 09/25/23 11:45 Ur Barbiturates Screen Negative ng/mL (Negative) 09/25/23 11:45 Ur Phencyclidine Scrn Negative ng/mL (Negative) 09/25/23 11:45 Ur Amphetamines Screen Negative ng/mL (Negative) 09/25/23 11:45 U Benzodiazepines Scrn Negative ng/mL (Negative) 09/25/23 11:45 Urine Cocaine Screen Negative ng/mL (Negative) 09/25/23 11:45 U Marijuana (THC) Screen Negative ng/mL (Negative) 09/25/23 11:45 All radiology interpretation(s) finalized by discharge Critical Care Time 2 Critical Care Time: Critical Care Time: Yes Total Critical Care Time: 75 Attestation: The high probability of a clinically significant, sudden or life threatening deterioration of the patient's cardiovascular respiratory GI system(s) required my full and direct attention, intervention and personal management. The critical care time is as shown. This time is in addition to time spent performing any reported procedures but includes the following: [x] Data and vital sign review and interpretation [x] Patient assessment, examination and intervention [x] Documentation [x] Medication orders and management Discharge Plan Discharge Patient Disposition: Admitted As Inpatient Clinical Impression: Acute cholecystitis, Septic shock, Acute respiratory failure with hypoxia Condition: Stable Coding Level of Care Code ED Web Press Operator Helper Offset for Joo Bowden NIH stroke score NIHSS Level Of Consciousness - 1a: 0 Level Of Consciousness Questions - 1b: One Correct Level Of Consciousness Commands - 1c: Both Correct Best Gaze - 2: Normal Visual G[place]son - 3: No Visual Loss Facial Palsy - 4: Normal Motor Arm Right - 5: Effort Against [place] Motor Arm Left - 5: No Drift Motor Leg Right - 6: Effort Against [place] Motor Leg Left - 6: No Drift Limb Ataxia - 7: Present In Two Limbs Sensory - 8: Mild To Moderate Loss Best Language - 9: Severe Aphasia Dysarthia - 10: Severe Dysarthia Extinction And Inattention - 11: 0 Score Total Score: 12
[2023-09-25 10:25] LABS: Glucose Point of Care 128 mg/dL (70-110)
--- NOTE | 2023-09-25 10:39 | CTR_ITS ---
PROCEDURE INFORMATION: Exam: CT Abdomen And Pelvis Without Contrast Exam date and time: 09/25/2023 10:59 AM Age: 53 years old Clinical indication: Abdominal pain; Generalized TECHNIQUE: Imaging protocol: Computed tomography of the abdomen and pelvis without contrast. Radiation optimization: All CT scans at this facility use at least one of these dose optimization techniques: automated exposure control; mA and/or kV adjustment per patient size (includes targeted exams where dose is matched to clinical indication); or iterative reconstruction. COMPARISON: No relevant prior studies available. RADIATION DOSE METRICS: Total DLP (mGy-cm): 692.73 FINDINGS: Lungs: Some rounded areas of consolidation are seen in the bilateral lower lobes. Liver: Normal. No mass. Gallbladder and bile ducts: Normal. No calcified stones. No ductal dilation. Pancreas: Normal. No ductal dilation. Spleen: Normal. No splenomegaly. Adrenal glands: Normal. No mass. Kidneys and ureters: Normal. No hydronephrosis. Stomach and bowel: Unremarkable. No obstruction. No mucosal thickening. Appendix: No evidence of appendicitis. Intraperitoneal space: Unremarkable. No free air. No significant fluid collection. Vasculature: Heavy burden of atherosclerotic plaque in the abdominal aorta and branch vessels. No aneurysm. Lymph nodes: Unremarkable. No enlarged lymph nodes. Urinary bladder: Unremarkable as visualized. Reproductive: Hysterectomy. Bones/joints: Unremarkable. No acute fracture. Soft tissues: Anasarca. CT/CT abdomen pelvis con [id number] IMPRESSION: Some rounded areas of consolidation in the bilateral lower lobes may reflect pneumonia. Otherwise, no acute findings.
[2023-09-25 10:51] LABS: Basophils # 0.1 10^3/uL (0.0-0.1); Basophils % 0.5 %; Eosinophils # 0.1 10^3/uL (0.0-0.8); Eosinophils % 0.8 %; Hematocrit 38.4 % (36-47); Lymphocytes # 1.6 10^3/uL (0.8-4.8); Lymphocytes % 13.9 %; Mean Corpuscular HGB Conc 28.9 g/dL (30-55); Mean Corpuscular Hemoglobin 27.5 pg (27-33); Mean Corpuscular Volume 95.3 fl (85-98); Mean Platelet Volume 11.6 fL (7.4-10.4); Monocytes % 8.6 %; Neutrophils # 8.45 10^3/uL (1.8-7.7); Neutrophils % 75.6 %; Nucleated Red Blood Cells # 0.8 /100WBC; Nucleated Red Blood Cells % 6.8 %; Platelet Count 119 10^3/cmm (157-399); Red Blood Count 4.03 10^6/uL (3.85-5.65); Red Cell Distribution Width 20.3 % (12.1-15.1); White Blood Count 11.18 10^3/uL (3.29-11.43)
[2023-09-25 11:03] LABS: INR 1.65 (0.8-1.2)
--- NOTE | 2023-09-25 11:03 | PC.NURSE ---
Pt speech: this nurse spoke with on phone about pt's baseline. per pt can normally make words, but has a hard time getting the words out . states this has been her normal since 2018. this nurse asked if pt words were garbled, states no. denies knowing home health nurse, states she is from [facility]. [facility] states they were told this is patient's normal.
[2023-09-25 11:04] LABS: Alkaline Phosphatase 345 U/L (35-105); Anion Gap 25.1 (5-19); Calcium 7.4 mg/dL (8.5-10.5); Carbon Dioxide 15 mmol/L (22-29); Chloride 100 mmol/L (98-107); Creatinine Clr Calc Pharmacy 22.2952; Globulin 3.1 g/dL (1.3-4.6); Glomerular Filtration Rate 17.6 mL/min (90-130); Glucose 112 mg/dL (65-115); Osmolality Calculated 307 mOsm/kg (285-295); Partial Thromboplastin Time 39.1 SECONDS (23.9-36.7); Potassium 5.1 mmol/L (3.5-5.1); Sodium 135 mmol/L (136-145); Total Bilirubin 1.7 mg/dL (0.15-1.2); Total Protein 6.1 g/dL (6.6-8.7)
[2023-09-25 11:14] LABS: Blood Urea Nitrogen 87 mg/dL (6-20)
[2023-09-25 11:19] LABS: Alanine Aminotransferase 884 U/L (0-33); Aspartate Amino Transferase 898 U/L (0-32)
--- NOTE | 2023-09-25 11:19 | XR_ITS ---
WS: [email or web address] Exam: XR chest 1V portable [id number] Date/Time of Exam: 09/25/2023 11:19 AM Reason For Exam: dyspnea/cough Comparison 12/05/2006. Interval cardiac enlargement noted. The lungs are clear. Slightly increased pulmonary vascularity. No pleural effusions. Bony structures are intact. The mediastinum is normal in contour. XR/XR chest 1V portable [id number] IMPRESSION: 1. Interval cardiac enlargement with slightly increased pulmonary vascularity.
--- NOTE | 2023-09-25 11:26 | US_ITS ---
WS: [email or web address] Exam: US gall bladder [id number] Date/Time of Exam: 09/25/2023 11:39 AM Reason For Exam: elevated LFTs/tbili Evaluation of the gallbladder shows some wall thickening measuring 6 mm in greatest thickness. Mild g allbladder wall edema. A single 3 mm stone seen in the gallbladder neck. No para cholecystic fluid id entified. Common bile duct is not dilated and measures 3 mm in greatest diameter. The RIGHT kidney is atrophic and measures 7.4 x 3.3 x 3.7 cm. Cortical thickness of the RIGHT kidney is 9 mm. Some sludg e in the gallbladder. Negative Harrison sign. The liver is unremarkable. The pancreas is unremarkable a s visualized. No intrahepatic ductal dilatation. Hepatopetal flow in the portal vein. US/US gall bladder [id number] IMPRESSION: 1. Mild thickening of the gallbladder nolasco with minimal edema. Early acute cho lecystitis not excluded. Single 2 mm stone and sludge seen in the neck of the g allbladder. No para cholecystic fluid. No intra or extrahepatic ductal dilatati on. 2. Incidental finding of moderate atrophy of the RIGHT kidney.
--- NOTE | 2023-09-25 11:29 | PC.NURSE ---
EMS administered 1L NS prior to arrival, per Dr. Blanton to only administer 1,150.04mL out of total of 2,150.04mL for @1122 Sodium Chloride 0.9% order.
[2023-09-25 11:44] LABS: Lipase 59 U/L (13-60)
--- NOTE | 2023-09-25 11:57 | PC.NURSE ---
Dr. Blanton notified of pt's hypotensive readings, pt placed in trendelenburg and fluid bolus currently infusing.
--- NOTE | 2023-09-25 12:07 | PC.PHAR ---
VERIFIED WITH PHARMACY VIA MED LIST AND LAST FILL DATES.
[2023-09-25 12:09] LABS: Amphetamines Screen Urine Negative (Negative); Barbiturates Screen Urine Negative (Negative); Benzodiazepines Screen Urine Negative (Negative); Cocaine Screen Urine Negative (Negative); Opiate Screen Urine Negative (Negative); PCP Screen Urine Negative (Negative); THC Screen Urine Negative (Negative)
[2023-09-25 12:11] LABS: Add Urine Microscopic? YES; Bilirubin Urine Neg (Negative); Blood Urine 2+ (Negative); Glucose Urine UA Norm (Normal); Ketones Urine Negative (Negative); Leukocyte Esterase Urine 1+ (Negative); Nitrate Urine Negative (Negative); Protein Urine 1+ (Negative); Urine Appearance Cloudy (CLEAR); Urine Color Yellow (Yellow); Urobilinogen Urine 1 mg/dL (Negative); pH Urine 5 (5-7)
[2023-09-25 12:12] LABS: Bacteria Urine 1+ /hpf; RBC Urine 0-4 /hpf (0-2); Squamous Epithelial Cell Urine 0-4 /hpf (0-5); WBC Urine 0-4 /hpf (0-5)
[2023-09-25] MEDS: norepinephrine 4 MG/250 ML BAG 30 MG IV (12:53)
--- NOTE | 2023-09-25 13:10 | PC.NURSE ---
Pt c/o SOB, appears anxious, oxygen saturation 94% on room air, pt states symptoms relieved shortly after. Dr. Blanton notified.
--- NOTE | 2023-09-25 13:20 | PC.NURSE ---
@1320: During central-line insertion pt became very anxious, attempting to grab sterile site, called for staff help, Dr. Blanton gave verbal orders for 1mg Ativan IVP.
[2023-09-25] MEDS: LORazepam 2 mg/mL INJ 10 mL MDV 1 MG IVP (13:30)
--- NOTE | 2023-09-25 13:39 | XR_ITS ---
WS: [email or web address] Exam: XR chest 1V portable [id number] Date/Time of Exam: 09/25/2023 1:43 PM Reason For Exam: CENTRAL LINE, INTUBATION Compared to the exam performed earlier on the same day at 11:27 a.m. An endotracheal tube has been placed and ends about 6 cm above the shaan. The lungs are well ventila jimi. The heart is enlarged but unchanged in size. No pneumothorax or pleural effusion. A right-sided IJ central line appears to extend into the RIGHT atrium. Additional opaque leads superimpose the ches t. Bony structures are intact. The mediastinum is normal in contour. XR/XR chest 1V portable [id number] IMPRESSION: 1. ET tube in satisfactory position. RIGHT sided IJ line ending in the RIGHT at rium. 2. Cardiac enlargement unchanged. No acute finding.
[2023-09-25 13:59] LABS: Reflex Lactate Order REFLEX LACTIC ORDERD
--- NOTE | 2023-09-25 14:01 | PC.NURSE ---
Medication Delay: antibiotics delayed d/t needing cultures & then central line placement & then RSI
--- NOTE | 2023-09-25 14:29 | PC.NURSE ---
@1335: pt lips appear cyanotic, unable to get oxygen saturation reading, applied non-rebreather 10L. per Dr. Blanton for RSI. @1341: 20mg Etomidate administered @1342: 10mg Vecuronium administered @1343: confirmed intubation by Dr. Blanton, bilateral breath sounds.
[2023-09-25 14:32] LABS: Blood Gas Sample Type Arterial; Carboxyhemoglobin 0.9 %THgb (0.4-20.1); Methemoglobin 0.8 % (0.4-1.5); Oxygen Device VENT; PO2 FiO2 Ratio Arterial Blood 0
--- NOTE | 2023-09-25 14:36 | CTR_ITS ---
PROCEDURE INFORMATION: Exam: CTA Chest With Contrast Exam date and time: 09/25/2023 3:25 PM Age: 53 years old Clinical indication: Shortness of breath; Additional info: Acute resp failure TECHNIQUE: Imaging protocol: Computed tomographic angiography of the chest with contrast. Exam focused on the arteries. 3D rendering (Not supervised by radiologist): MIP and/or 3D reconstructed images were created by the technologist. Radiation optimization: All CT scans at this facility use at least one of these dose optimization techniques: automated exposure control; mA and/or kV adjustment per patient size (includes targeted exams where dose is matched to clinical indication); or iterative reconstruction. Contrast material: OMNI 350; Contrast volume: 100 ml; Contrast route: INTRAVENOUS (IV); COMPARISON: CR XR chest 1V portable [id number] 09/25/2023 1:40 PM RADIATION DOSE METRICS: Total DLP (mGy-cm): 413.68 FINDINGS: Limitations: Images degraded by artifact. Tubes, catheters and devices: Tip of endotracheal tube projects at origin right mainstem bronchus. Central venous line partially included, appearing to follow right internal jugular venous route with tip projecting right atrium. Pulmonary arteries: Portions of pulmonary arteries not well opacified. No obvious filling defects seen visualized portions of main, central pulmonary arteries to suggest pulmonary embolism. Pulmonary hypertension possible. Main pulmonary trunk appears similar in diameter to ascending thoracic aorta. Great vessels off aortic arch: Typical three-vessel origin great vessels of the thoracic aortic arch. Aorta: No aneurysm seen thoracic aorta. Other arteries: Extensive atherosclerotic disease. Lungs: Pulmonary interstitial and airspace opacities. Patchy ground-glass opacities portions of lungs bilaterally. Infiltrate and/or atelectasis lower lobes, lung bases bilaterally. Configuration left lower lobe possibly due to pulmonary edema, infiltrates, atelectasis, scarring, but 4 cm cavitating lesion or other process not excluded. Pleural spaces: Small pleural effusions, right greater than left. No pneumothorax seen. Heart: Suggestion of faint cardiac valve calcification. Heart size appears enlarged. Small amount of pericardial fluid. Prominent left atrium. Extensive reflux, enhancement of contrast material into inferior vena cava, hepatic veins suggesting right heart dysfunction. Coronary arteries: Coronary artery calcification. Lymph nodes: Evidence of mediastinal, hilar, left axillary lymphadenopathy extending left supraclavicular, left base of neck on the left side. Gallbladder and bile ducts: Gallbladder ill-defined, but evidence of marked gallbladder wall thickening and/or edema with mildly dense material within gallbladder, slight ascites, pericholecystic fluid. Correlate for cholecystitis, acute and/or chronic. Neoplasm or other process possible. Common duct not well defined. Correlation with ultrasound scan and/or MRI with MRCP recommended. Pancreas: Peripancreatic fluid, stranding. Adrenal glands: Adrenals unremarkable. Kidneys and ureters: Calcifications kidneys bilaterally possibly vascular calcifications versus nonobstructing stones, calculi, partially included. Perirenal fluid, stranding bilaterally. Suggestion of fluid and/or thickening paracolic regions bilaterally partially included. Bones/joints: Degenerative changes spine. Soft tissues: Evidence mild wall thickening visualized portions colon with evidence of subcutaneous, submucosal fat of visualized portions colon which can be seen with obesity, inflammatory bowel disease, chronic inflammation, or other process. Evidence of mediastinal, perivascular, subcutaneous haziness, stranding suggesting infiltration, edema. Other findings: Calcified granulomatous disease. CT/CT angio chest PE protcl [id number] IMPRESSION: 1. Limited study. No obvious pulmonary embolism seen. 2. Tip of endotracheal tube projects at origin right mainstem bronchus. 3. Cardiomegaly. Small amount of pericardial fluid. Prominent left atrium. Extensive reflux, enhancement of contrast material into inferior vena cava, hepatic veins suggesting right heart dysfunction. Correlate for pulmonary arterial hypertension. 4. Pulmonary interstitial and airspace opacities. Patchy ground-glass opacities portions of lungs bilaterally. Infiltrate and/or atelectasis lower lobes, lung bases bilaterally. Configuration left lower lobe possibly due to pulmonary edema, infiltrates, atelectasis, scarring, but 4 cm cavitating lesion or other process not excluded. 5. Haziness, stranding, fluid of soft tissues, ascites, correlate for congestive heart failure or other fluid overload condition. 6. Gallbladder ill-defined, but evidence of marked gallbladder wall thickening and/or edema with mildly dense material within gallbladder, slight ascites, pericholecystic fluid. Correlate for cholecystitis, acute and/or chronic. Neoplasm or other process possible. Common duct not well defined. Correlation with ultrasound scan and/or MRI with MRCP recommended. 7. Peripancreatic fluid. Correlate for pancreatitis or other process. 8. Central venous line partially included, appearing to follow right internal jugular venous route with tip projecting right atrium. 9. Evidence of lymphadenopathy. 10. Please see body of report.
[2023-09-25 14:41] LABS: ABG PCO2 53.4 mmHg (35-45); ABG PH Result 6.96 (7.35-7.45); Base Excess ABG -19.8 mmol/L (-2.0-2.0); Blood Gas Operator Identificat GD; HCO3 ABG 11.9 mmol/L (22-26); Oxygen Saturation ABG 24.4; PO2 ABG 29.5 mmHg (80.0-100.0); Potassium Level - ABG 5.3 mmol/L (3.5-5.0)
[2023-09-25 14:42] LABS: Alveolar-Arterial Oxygen Gradi 81.2 mmHg (5-10); Arterial Blood Gas Hematocrit 35.3 % (37-47); Blood Gas Sample Site Brachial, right; Ionized Calcium Level - ABG 1.1 mmol/L (1.1-1.4); Total Hemoglobin 11.5 g/dL (12-16)
[2023-09-25] MEDS: vasopressin 40 UNIT/100 ML PREMIX 0.0800000000000000017 UNIT IV (14:42)
--- NOTE | 2023-09-25 14:43 | PC.NURSE ---
Blood Pressure: unable to get manual blood pressure; this nurse & Isela Tejeda RN attempted to obtain manual blood pressure via auscultation & doppler. YASMANY Guerrier (ICU) attempted to obtain manual blood pressure via auscultation. pt cap refill approx 8 seconds, toes purple in color noted at this time.
--- NOTE | 2023-09-25 14:47 | PC.NURSE ---
Pt has discoloration noted to BLE at this time.
[2023-09-25] MEDS: iohexol 350 mg/mL 500 mL Btl (per mL) IV (15:27)
[2023-09-25 15:38] LABS: Lactic Acid level (Lactate) 7.4 mmol/L (0.5-2.2)
[2023-09-25] MEDS: ciprofloxacin 400 MG/200 ML PREMIX 200 MG IV (16:00)
[2023-09-25] MEDS: EPINEPHrine 2.5 MG in sodium chloride 0.9% 250 ML 6.05999999999999961 MG IV (16:11)
--- NOTE | 2023-09-25 16:11 | PC.NURSE ---
Blood pressure: this nurse still unable to get manual blood pressure, Dr. Blanton notified.
--- NOTE | 2023-09-25 16:14 | PC.NURSE ---
Pt pupils reactive to light, sluggish response.
[2023-09-25 16:41] LABS: ABG PCO2 50.4 mmHg (35-45); Alveolar-Arterial Oxygen Gradi 81.2 mmHg (5-10); Arterial Blood Gas Hematocrit 37.9 % (37-47); Base Excess ABG -18.3 mmol/L (-2.0-2.0); Blood Gas Allen Test Pos; Blood Gas Operator Identificat GD; Blood Gas Sample Site Radial, right; Blood Gas Sample Type Arterial; Blood Gas Tidal Volume 0.45; HCO3 ABG 12.6 mmol/L (22-26); HGB O2 Sat 33.7 % (95-100); Ionized Calcium Level - ABG 1.1 mmol/L (1.1-1.4); Methemoglobin 0.8 % (0.4-1.5); Oxygen Device VENT; Oxygen Saturation ABG 34.3; PO2 ABG 31.6 mmHg (80.0-100.0); PO2 FiO2 Ratio Arterial Blood 0; Potassium Level - ABG 5.4 mmol/L (3.5-5.0); Total Hemoglobin 12.4 g/dL (12-16)
[2023-09-25 16:42] LABS: ABG PH Result 7.01 (7.35-7.45)
--- NOTE | 2023-09-25 16:45 | PC.NURSE ---
Rectal Temperature: 96.5, hema curran applied to pt. Dr. Blanton notified.
[2023-09-25] MEDS: norepinephrine 4 MG/250 ML BAG 82.5 MG IV ×2 (16:47→19:39)
--- NOTE | 2023-09-25 16:47 | PC.NURSE ---
Per Dr. Blanton to increase Levophed to 22 mcg/min. unable to obtain manual blood pressure.
[2023-09-25] MEDS: heparin drip 25,000 UNIT/500 ML PREMIX 20.0700000000000003 UNIT IV (17:11)
[2023-09-25] MEDS: heparin 5,000 unit/mL INJ 1 mL IV (17:11)
[2023-09-25] MEDS: sodium chloride 0.9% 1,000 ML 999 ML IV (17:12)
--- NOTE | 2023-09-25 17:20 | P.HP_ITS ---
Providers/Chief Complaint 2 Primary Care Provider: MARIZOL Dye Chief Complaint: Abd Pain History of Present Illness Erin Salazar is a 53 year old female presented from home with chief complaint abdominal pain, she has been having the symptoms for last couple days was sent to the hospital when home health nurse noticed that patient was getting confused and obtunded stroke was called Dr. Anand was notified. Patient was having waxing and waning symptoms decision was made not to give tPA. Further workup for abdominal pain revealed acute cholecystitis, septic shock, Dr. Parr was putting a central line when she became hypoxic she was then intubated for respiratory failure, Dr. Menjivar entertainment manager also evaluated her, at the time of my evaluation I have added bicarb drip she is already on 3 vasopressors Levophed, vasopressin and epinephrine, patient has significant skin mottling all over She is intubated Not responsive at all without use of sedatives Patient did not respond to fluids adequately, went into septic shock, we were seeking transfer to tertiary level care for cholecystostomy tube versus GI service for her acute cholecystitis related to septic shock however her condition deteriorated further and required 3 vasopressors patient had to be intubated by the ER physician kindly read the ER note for further details There was concern for PE however CTA chest has not shown any sign of PE goals of care were discussed with the family they decided to pursue DNR/DNI status, they do not want to pursue terminal extubation at this point Patient was started on heparin weight-based protocol for possible PE There is concern for cholecystitis and ascending cholangitis as she fits the criteria of hypertension abdominal pain with abdominal bilirubin Review of Systems 2 General: Reports: ROS unobtainable due to endotracheal tube and ROS unobtainable due to medical condition Medications/Allergies Home Medications Medication Instructions Recorded Confirmed Last Taken Type custom molded AFO to the right #1 ea 09/13/20 09/25/23 Unknown Rx custom molded AFO to the right #1 ea 09/13/20 09/25/23 Unknown Rx wheelchair #1 ea 07/25/21 09/25/23 Unknown Rx Power Mobility Wheelchair #1 ea 02/21/23 09/25/23 Unknown Rx fluconazole 150 mg tablet See Rx Instructions .Route 07/29/23 09/25/23 Unknown Rx .COMPLEX #7 tabs atorvastatin 80 mg tablet 80 mg PO DAILY 09/25/23 09/25/23 Unknown History fluoxetine 10 mg capsule 10 mg PO DAILY 09/25/23 09/25/23 Unknown History fluoxetine 20 mg capsule 20 mg PO DAILY 09/25/23 09/25/23 Unknown History metoprolol tartrate 25 mg tablet 25 mg PO DAILY 09/25/23 09/25/23 Unknown History nystatin 100,000 unit/gram topical 1 applic topical BID 09/25/23 09/25/23 Unknown History powder (Nystop) Allergies Allergy/AdvReac Type Severity Reaction Status Date / Time Penicillins Allergy Mild ALGY-Hives Verified 06/03/23 16:22 PFSH Acute 2 PFSH: Medical History 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, old, aphasia Family History Mother Stroke Social History Smoking and tobacco/nicotine status: current every day tobacco/nicotine user Quit status (tobacco/nicotine): not considering quitting Vitals/I&O/Wt Last Vital Signs Pulse 113 H 09/25/23 16:55 Resp 16 09/25/23 16:55 BP 129/106 09/25/23 16:45 Pulse Ox 67 L 09/25/23 16:55 O2 Del Method Room Air 09/25/23 10:47 FiO2 100 09/25/23 14:08 09/25/23 09/25/23 09/25/23 06:59 14:59 22:59 Intake Total 1228.250 / 1228.250 156.25 / 1384.500 Balance 1228.250 / 1228.250 156.25 / 1384.500 Weight last 48 hrs Weight 71.668 kg Physical Exam 2 Narrative: Patient has skin mottling all over her We not able to detect good waist, she is extremely hypotensive on 3 pressors Not on sedatives, not able to respond to verbal or painful stimuli On mechanical ventilator Assisted bilateral breath sounds with coarse rhonchi Skin mottling extending all the way up to her toes Fitzgerald catheter in place Neuroexam limited Urinary Catheter Management: Fitzgerald: Cath Placed During This Visit: yes Urinary Catheter Date of Insertion: 09/25/23 Urinary Catheter Time of Insertion: 11:50 Data 09/25/23 10:30 09/25/23 10:30 Micro: Microbiology 09/25/23 14:14 Gram Stain - Final Sputum - Endotracheal Tube Aspirate 09/25/23 12:07 Blood Culture - Preliminary Blood SPECIMEN COLLECTED 09/25/23 12:09 Blood Culture - Preliminary Blood SPECIMEN COLLECTED A&P Assessment and plan (1) Ascending cholangitis: (2) Septic shock: (3) Acute cholecystitis: (4) CVA, old, aphasia: (5) Acute respiratory failure with hypoxia: (6) Metabolic acidosis: (7) Acute kidney injury superimposed on chronic kidney disease: (8) Metabolic encephalopathy: Plan Septic shock Criteria met with tachypnea tachycardia leukocytosis high lactic acid Source: Cholecystitis with ascending cholangitis concern Patient was evaluated by critical care Dr. Menjivar Started antibiotics Currently on 3 pressors Not stable to be transferred at this point Admit to ICU Start bicarb drip Severe metabolic acidosis Vasopressors might not be very effective with such high acidosis Started bicarb drip with D5 Patient is showing signs of skin mottling Respiratory failure require mechanical ventilation Concern for PE Started on therapeutic weight-based heparin protocol Sepsis induced A-fib Currently on heparin Acute on chronic kidney disease: Secondary septic shock Monitor urine output correlate with creatinine N.p.o. Guarded prognosis Family had decided to pursue DNR/DNI status however did not want to determine extubate her at this point Attestations 2 Medical Necessity Statement*: Guarded prognosis intubated more than 2 midnights in the hospital Coding Level of Care Code Critical Care >/= 30 minutes Critical care time (in minutes): 40 The high probability of a clinically significant, sudden or life threatening deterioration, as referenced in this documentation, required my full and direct attention, intervention and personal management. The critical care time shown is in addition to time spent performing any reported separately billable procedures and includes the following: [x] Data and vital sign review and interpretation [x ] Patient assessment, examination and intervention [x] Medication orders and management [x] Patient/Family updates as able [x] Care Coordination and Documentation. Diagnoses Ascending cholangitis K83.09 Septic shock A41.9; R65.21 Acute cholecystitis K81.0 CVA, old, aphasia I69.320 Acute respiratory failure with hypoxia J96.01 Metabolic acidosis E87.20 Acute kidney injury superimposed on chronic kidney disease N17.9; N18.9 Metabolic encephalopathy G93.41
[2023-09-25] MEDS: metroNIDAZOLE IV 500 MG/100 ML PREMIX 100 MG IV ×2 (17:29→19:29)
--- NOTE | 2023-09-25 18:20 | PC.PHAR ---
Renal dosing of Aztreonam 2 gm q12h, changed to 1gm q12h for CrCL of 10-30 is 50% of normal dose at prescribed interval Thank you, Vi Thomas h
[2023-09-25] MEDS: sodium bicarbonate 150 MEQ in dextrose 5% 1,000 ML 100 MEQ IV (18:26)
[2023-09-25] MEDS: calcium gluconate 0.1 gm/mL 10% SDV 10mL 1 GM IVP (18:28)
--- NOTE | 2023-09-25 18:29 | PC.NURSE ---
Patient arrived to ICU from ER.
[2023-09-25] MEDS: hydrocortisone 100 mg/2 mL SDV IVP (18:40)
[2023-09-25] MEDS: vancomycin 1,250 MG/250 ML PIGGYBACK 250 MG IV (19:39)
[2023-09-25] MEDS: sodium chloride 0.9% 1,000 ML 75 ML IV (19:57)
[2023-09-25 20:21] LABS: ABG PCO2 26.3 mmHg (35-45); Arterial Blood Gas Hematocrit 35.3 % (37-47); Base Excess ABG -22.3 mmol/L (-2.0-2.0); Blood Gas Operator Identificat JB; Blood Gas Sample Site Brachial, right; Blood Gas Sample Type Arterial; Blood Gas Tidal Volume 0.45; Oxygen Device VENT; PO2 FiO2 Ratio Arterial Blood 0
[2023-09-25 20:22] LABS: ABG PH Result 7.03 (7.35-7.45)
--- NOTE | 2023-09-25 20:53 | P.CONIM_ITS ---
Providers/Reason For Consult 2 Consulting Physician/Specialty*: Mani Bentley MD [facility] critical [facility] Reason for Consult*: Shock on 3 pressors Requesting Physician: Dr. Blanton Attending Physician: Radha Victoria MD Primary Care Provider: MARIZOL Dye History of Present Illness History of Present Illness Erin Salazar is a 53 year old female brought to emergency room with chief complaint of abdominal pain. According to boyfriend - patient has been complaining of abdominal pain for last 3 days and unable to eat. She became more confused. Her blood pressure was low and required pressors upon arrival. While placing a central line patient became hypoxic and was agitated. She was intubated to protect airway and for impending respiratory failure. Postintubation initial ABG showed pH 6.96/53 pCO2/pO2 29 likely venous; repeat ABG 2 hours later showed pH 7.01/pCO2 50/pO2 31-; monitor oxygen saturation was also in 60s. Will increase the PEEP and on the repeat ABG 4 hours later showed pH 7.03/26/PaO2 212. Other prominent labs-normal white count; chemistry showed significantly elevated lactic acid 7.4, KIKA with BUN 87/creatinine 2.8; deranged LFTs. Imaging; chest x-ray showed interval cardiac enlargement with slightly increased pulmonary vascularity. CT head showed mildly increased hypodensity left parietal region compared to 09/21/2021-may reflect area of age-indeterminate ischemia. No acute hemorrhage. Abdominal CT showed rounded areas of consolidation in bilateral lower lobes reflecting pneumonia. Gallbladder ultrasound showed mild thickening of gallbladder nolasco with minimal edema. Early acute cholecystitis. Single 2 mm stone seen in neck of gallbladder. No para cholecystic fluid. CTA; no obvious pulmonary embolism seen. Small amount of pericardial fluid. Prominent left atrium, extensive reflux, enhancement of contrast material into inferior vena cava patent vein suggestive of right heart dysfunction correlate for pulmonary arterial hypertension. Pulmonary interstitial airspace opacities, groundglass opacities bilaterally. Cavitating lesion cannot be excluded. Evidence of mild gallbladder wall thickening/edema with mildly dense material within the gallbladder. Peripancreatic fluid correlate for pancreatitis. Postintubation; pulmonary critical care consult requested for evaluation. At the time of my examination she was already intubated and sedated and on 3 pressors. According to her boyfriend for last 6 years; -patient had a stroke in 2018 and since then she had right-sided weakness. She has gait instability and does not walk much. Mostly confined to wheelchair and limited walking in house. He denied patient having any drug use, alcohol use. Reported she is a chronic smoker. Boyfriend spoke to patient's family and confirmed no aggressive measures. Review of Systems 2 General: Reports: ROS unobtainable due to endotracheal tube, ROS unobtainable due to medical condition and ROS unobtainable due to mental status Medications/Allergies Home Medications Medication Instructions Recorded Confirmed Last Taken Type custom molded AFO to the right #1 ea 09/13/20 09/25/23 Unknown Rx custom molded AFO to the right #1 ea 09/13/20 09/25/23 Unknown Rx wheelchair #1 ea 07/25/21 09/25/23 Unknown Rx Power Mobility Wheelchair #1 ea 02/21/23 09/25/23 Unknown Rx fluconazole 150 mg tablet See Rx Instructions .Route 07/29/23 09/25/23 Unknown Rx .COMPLEX #7 tabs atorvastatin 80 mg tablet 80 mg PO DAILY 09/25/23 09/25/23 Unknown History fluoxetine 10 mg capsule 10 mg PO DAILY 09/25/23 09/25/23 Unknown History fluoxetine 20 mg capsule 20 mg PO DAILY 09/25/23 09/25/23 Unknown History metoprolol tartrate 25 mg tablet 25 mg PO DAILY 09/25/23 09/25/23 Unknown History nystatin 100,000 unit/gram topical 1 applic topical BID 09/25/23 09/25/23 Unknown History powder (Nystop) Allergies Allergy/AdvReac Type Severity Reaction Status Date / Time Penicillins Allergy Mild ALGY-Hives Verified 06/03/23 16:22 Current Medications Generic Name Dose Route Start Last Admin Trade Name Freq PRN Reason Stop Dose Admin Heparin Sodium (Porcine) 0 unit 09/25/23 16:36 09/25/23 17:11 Heparin 5,000 Unit/Ml Inj 1 Ml IV 4,000 unit PRN PRN Administration Heparin weight-base protocol Protocol Hydrocortisone Sodium Succinate 100 mg 09/25/23 18:15 09/25/23 18:40 Hydrocortisone 100 Mg/2 Ml Sdv IVP 100 mg Q12H MARVIN Administration Norepinephrine Bitartrate 4 mg in 250 mls @ 0 mls/hr 09/25/23 12:45 09/25/23 20:40 Levophed IV 20 mcg/min .Q0M MARVIN 75 mls/hr Titration Protocol Per Protocol Vasopressin 40 unit in 100 mls @ 0.075 mls/min 09/25/23 14:45 09/25/23 14:42 Vasostrict IV 0.08 mls/min CONT MARVIN Administration Epinephrine HCl 2.5 mg/ Sodium 252.5 mls @ 0 mls/hr 09/25/23 15:45 09/25/23 16:11 Chloride IV 1 mcg/min .Q0M MARVIN 6.06 mls/hr Administration Protocol Per Protocol Heparin Sodium/Sodium Chloride 25,000 unit in 500 mls @ 0 mls/hr 09/25/23 16:45 09/25/23 17:11 Heparin Drip IV 14 unit/kg/hr .Q0M MARVIN 20.07 mls/hr Administration Protocol Per Protocol Sodium Bicarbonate 150 meq/ 1,150 mls @ 100 mls/hr 09/25/23 17:20 09/25/23 18:26 Dextrose IV 09/26/23 04:49 100 mls/hr .[id number] ONE Administration Sodium Chloride 1,000 mls @ 75 mls/hr 09/25/23 18:15 09/25/23 19:57 Sodium Chloride 0.9% IV 75 mls/hr .[id number] MARVIN Administration Metronidazole 500 mg in 100 mls @ 100 mls/hr 09/25/23 18:15 09/25/23 20:39 Flagyl Iv IV Infused Q8H MARVIN Infusion Protocol Vancomycin/PEG/NADA/Lysine/Water 1,250 mg in 250 mls @ 250 mls/hr 09/25/23 18:30 09/25/23 20:40 Vancocin IV Infused Q48H MARVIN Infusion PFSH Acute 2 PFSH: Medical History 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, old, aphasia Family History Mother Stroke Social History Smoking and tobacco/nicotine status: current every day tobacco/nicotine user Quit status (tobacco/nicotine): not considering quitting Vitals/I&O/Wt Last Vital Signs Temp 96.5 F L 09/25/23 16:45 Pulse 140 H 09/25/23 17:54 Resp 16 09/25/23 19:52 BP 129/106 09/25/23 16:45 Pulse Ox 50 L 09/25/23 17:56 O2 Del Method Mechanical Ventilation 09/25/23 18:06 FiO2 100 09/25/23 20:00 09/25/23 09/25/23 09/25/23 06:59 14:59 22:59 Intake Total 1228.250 / 9417.442 6153.625 / 3254.875 Balance 1228.250 / 1613.647 3457.625 / 3254.875 Weight last 48 hrs Weight 165 lb Weight 158 lb Physical Exam 2 Narrative: PHYSICAL EXAM: General: lying in bed, sedated and intubated. HEENT:NCAT, pupils appear dilated and fixed Neck: Supple Lungs: Clear, Heart: s1/s2, RRR Abd: soft, NT, ND, BS + Normoactive Extremities: No edema CLOTH BALE HEADER: sedated and limited CLOTH BALE HEADER exam possible. SKIN: no rash LDA: # CVC: Right IJ line 09/25/2023 # Fitzgerald: 09/25/2023 Urinary Catheter Management: Fitzgerald: Cath Placed During This Visit: yes Reason for Continuing Indwelling Catheter: Accurate Measurement of Urinary Output in Critically Ill Patients Urinary Catheter Date of Insertion: 09/25/23 Urinary Catheter Time of Insertion: 11:50 Data 09/25/23 10:30 09/25/23 10:30 Other Labs: Radiology Impressions Head CT 09/25/23 10:07 IMPRESSION: There appears to be mildly increased hypodensity in the left parietal region compared to 09/21/2021, which may reflect an area of age-indeterminate ischemia. MRI could further evaluate for acute ischemia. No acute hemorrhage. ASSESSMENT: ASPECTS ([place] Stroke Program Early CT Score) is 4. Abdomen/Pelvis CT 09/25/23 10:39 IMPRESSION: Some rounded areas of consolidation in the bilateral lower lobes may reflect pneumonia. Otherwise, no acute findings. Gallbladder Ultrasound 09/25/23 11:26 IMPRESSION: 1. Mild thickening of the gallbladder nolasco with minimal edema. Early acute cholecystitis not excluded. Single 2 mm stone and sludge seen in the neck of the gallbladder. No para cholecystic fluid. No intra or extrahepatic ductal dilatation. 2. Incidental finding of moderate atrophy of the RIGHT kidney. Chest X-Ray 09/25/23 13:39 IMPRESSION: 1. ET tube in satisfactory position. RIGHT sided IJ line ending in the RIGHT atrium. 2. Cardiac enlargement unchanged. No acute finding. Chest CTA 09/25/23 14:36 IMPRESSION: 1. Limited study. No obvious pulmonary embolism seen. 2. Tip of endotracheal tube projects at origin right mainstem bronchus. 3. Cardiomegaly. Small amount of pericardial fluid. Prominent left atrium. Extensive reflux, enhancement of contrast material into inferior vena cava, hepatic veins suggesting right heart dysfunction. Correlate for pulmonary arterial hypertension. 4. Pulmonary interstitial and airspace opacities. Patchy ground-glass opacities portions of lungs bilaterally. Infiltrate and/or atelectasis lower lobes, lung bases bilaterally. Configuration left lower lobe possibly due to pulmonary edema, infiltrates, atelectasis, scarring, but 4 cm cavitating lesion or other process not excluded. 5. Haziness, stranding, fluid of soft tissues, ascites, correlate for congestive heart failure or other fluid overload condition. 6. Gallbladder ill-defined, but evidence of marked gallbladder wall thickening and/or edema with mildly dense material within gallbladder, slight ascites, pericholecystic fluid. Correlate for cholecystitis, acute and/or chronic. Neoplasm or other process possible. Common duct not well defined. Correlation with ultrasound scan and/or MRI with MRCP recommended. 7. Peripancreatic fluid. Correlate for pancreatitis or other process. 8. Central venous line partially included, appearing to follow right internal jugular venous route with tip projecting right atrium. 9. Evidence of lymphadenopathy. 10. Please see body of report. ADDENDUM: 09/25/23 [id number] COMMENT: THIS REPORT CONTAINS FINDINGS THAT MAY BE CRITICAL TO PATIENT CARE. The exam findings were verbally communicated by me to SAHRA BLANTON via telephone conference at 4:24 PM CDT on 09/25/2023. The findings were acknowledged and understood. Laboratory Results WBC 11.18 10^3/uL (3.29-11.43) 09/25/23 10:30 RBC 4.03 10^6/uL (3.85-5.65) 09/25/23 10:30 Hgb 11.10 g/dL (11.27-16.99) L 09/25/23 10:30 Hct 38.4 % (36-47) 09/25/23 10:30 MCV 95.3 fl (85-98) 09/25/23 10:30 MCH 27.5 pg (27-33) 09/25/23 10:30 MCHC 28.9 g/dL (30-55) L 09/25/23 10:30 RDW 20.3 % (12.1-15.1) H 09/25/23 10:30 Plt Count 119 10^3/cmm (157-399) L 09/25/23 10:30 MPV 11.6 fL (7.4-10.4) H 09/25/23 10:30 Neut % (Auto) 75.6 % 09/25/23 10:30 Lymph % (Auto) 13.9 % 09/25/23 10:30 Dougherty % (Auto) 8.6 % 09/25/23 10:30 Eos % (Auto) 0.8 % 09/25/23 10:30 Baso % (Auto) 0.5 % 09/25/23 10:30 Neut # (Auto) 8.45 10^3/uL (1.8-7.7) H 09/25/23 10:30 Lymph # (Auto) 1.6 10^3/uL (0.8-4.8) 09/25/23 10:30 Dougherty # (Auto) 1.0 10^3/uL (0.2-0.9) H 09/25/23 10:30 Eos # (Auto) 0.1 10^3/uL (0.0-0.8) 09/25/23 10:30 Baso # (Auto) 0.1 10^3/uL (0.0-0.1) 09/25/23 10:30 Nucleated RBC % (auto) 6.8 % 09/25/23 10:30 Nucleated RBCs # 0.8 /100WBC 09/25/23 10:30 PT 20.10 SECONDS (12.1-14.9) H 09/25/23 10:30 INR 1.65 (0.8-1.2) H 09/25/23 10:30 APTT 39.1 SECONDS (23.9-36.7) H 09/25/23 10:30 Specimen Type Arterial 09/25/23 20:08 Sample Site Brachial, right 09/25/23 20:08 ABG pH 7.03 (7.35-7.45) L* 09/25/23 20:08 ABG pCO2 26.3 mmHg (35-45) L 09/25/23 20:08 ABG pO2 212.0 mmHg (80.0-100.0) H 09/25/23 20:08 ABG PO2/FiO2 Ratio 0 09/25/23 20:08 ABG HCO3 7.0 mmol/L (22-26) L 09/25/23 20:08 ABG O2 Saturation 34.3 09/25/23 16:35 ABG Base Excess -22.3 mmol/L (-2.0-2.0) L 09/25/23 20:08 Dontrell Test N/a 09/25/23 20:08 A-a O2 Gradient 81.2 mmHg (5-10) H 09/25/23 16:35 Hematocrit 35.3 % (37-47) L 09/25/23 20:08 Hgb O2 Saturation 33.7 % (95-100) L 09/25/23 16:35 Carboxyhemoglobin 1.0 %THgb (0.4-20.1) 09/25/23 16:35 Methemoglobin 0.8 % (0.4-1.5) 09/25/23 16:35 Total Hemoglobin 12.4 g/dL (12-16) 09/25/23 16:35 Sodium 132.0 mmol/L (131-143) 09/25/23 16:35 Potassium 5.4 mmol/L (3.5-5.0) H 09/25/23 16:35 Glucose 157.0 mg/dL (70-115) H 09/25/23 16:35 Ionized Calcium 1.1 mmol/L (1.1-1.4) 09/25/23 16:35 O2 Delivery Device Vent 09/25/23 20:08 FiO2 100.0 % 09/25/23 20:08 Tidal Volume 0.45 09/25/23 20:08 PEEP 10.0 cmH20 09/25/23 20:08 Nail Polish Brush Machine Feeder ID Vinny 09/25/23 20:08 Sodium 135 mmol/L (136-145) L 09/25/23 10:30 Potassium 5.1 mmol/L (3.5-5.1) 09/25/23 10:30 Chloride 100 mmol/L (98-107) 09/25/23 10:30 Carbon Dioxide 15 mmol/L (22-29) L 09/25/23 10:30 Anion Gap 25.1 (5-19) H 09/25/23 10:30 BUN 87 mg/dL (6-20) H* D 09/25/23 10:30 Creatinine 2.8 mg/dL (0.5-0.9) H 09/25/23 10:30 GFR Calculation 17.6 mL/min (90-130) L 09/25/23 10:30 Glucose 112 mg/dL (65-115) 09/25/23 10:30 POC Glucose 128 mg/dL (70-110) H 09/25/23 10:22 Calculated Osmolality 307 mOsm/kg (285-295) H 09/25/23 10:30 Lactic Acid 3.0 mmol/L (0.5-2.2) H 09/25/23 12:09 Lactic Acid (Sepsis) 7.4 mmol/L (0.5-2.2) H* 09/25/23 14:45 Calcium 7.4 mg/dL (8.5-10.5) L 09/25/23 10:30 Total Bilirubin 1.7 mg/dL (0.15-1.2) H 09/25/23 10:30 AST 898 U/L (0-32) H 09/25/23 10:30 ALT 884 U/L (0-33) H 09/25/23 10:30 Alkaline Phosphatase 345 U/L (35-105) H 09/25/23 10:30 Total Protein 6.1 g/dL (6.6-8.7) L 09/25/23 10:30 Albumin 3.0 g/dL (3.5-5.2) L 09/25/23 10:30 Globulin 3.1 g/dL (1.3-4.6) 09/25/23 10:30 Lipase 59 U/L (13-60) 09/25/23 10:30 Urine Color Yellow (Yellow) 09/25/23 11:45 Urine Appearance Cloudy (CLEAR) A 09/25/23 11:45 Urine pH 5 (5-7) 09/25/23 11:45 Ur Specific [place] 1.020 (1.005-1.030) 09/25/23 11:45 Urine Protein 1+ (Negative) H 09/25/23 11:45 Urine Glucose (UA) Norm (Normal) 09/25/23 11:45 Urine Ketones Negative (Negative) 09/25/23 11:45 Urine Blood 2+ (Negative) H 09/25/23 11:45 Urine Nitrate Negative (Negative) 09/25/23 11:45 Urine Bilirubin Neg (Negative) 09/25/23 11:45 Urine Urobilinogen 1 mg/dL (Negative) H 09/25/23 11:45 Ur Leukocyte Esterase 1+ (Negative) H 09/25/23 11:45 Urine RBC 0-4 /hpf (0-2) H 09/25/23 11:45 Urine WBC 0-4 /hpf (0-5) H 09/25/23 11:45 Ur Squamous Epith Cells 0-4 /hpf (0-5) H 09/25/23 11:45 Amorphous Sediment Not Reportable 09/25/23 11:45 Urine Bacteria 1+ /hpf (NONE) H 09/25/23 11:45 Urine Opiates Screen Negative ng/mL (Negative) 09/25/23 11:45 Ur Barbiturates Screen Negative ng/mL (Negative) 09/25/23 11:45 Ur Phencyclidine Scrn Negative ng/mL (Negative) 09/25/23 11:45 Ur Amphetamines Screen Negative ng/mL (Negative) 09/25/23 11:45 U Benzodiazepines Scrn Negative ng/mL (Negative) 09/25/23 11:45 Urine Cocaine Screen Negative ng/mL (Negative) 09/25/23 11:45 U Marijuana (THC) Screen Negative ng/mL (Negative) 09/25/23 11:45 Micro: Microbiology 09/25/23 14:14 Gram Stain - Final Sputum - Endotracheal Tube Aspirate 09/25/23 12:07 Blood Culture - Preliminary Blood SPECIMEN COLLECTED 09/25/23 12:09 Blood Culture - Preliminary Blood SPECIMEN COLLECTED A&P Assessment and plan (1) Altered mental status: Altered mental status likely secondary to metabolic encephalopathy/sepsis Patient with history of left-sided CVA in 2018 with residual right hemiparesis Today CT head-did not show obvious acute event Currently intubated and sedated Pupil examination shows dilated/fixed pupils-suspect hypoxic encephalopathy due to hypoperfusion due to sepsis, no spontaneous breaths. Taper off sedation tomorrow morning repeat CT head and EEG in 24 hours (2) Septic shock: Currently on 3 pressors-try to maintain MAP greater than 60-continue hemodynamic monitoring Right ventricular dilation on CT chest with no obvious PE-patient being immobile-recommend to start heparin for presumed PE/DVT. Please obtain lower extremity bilateral venous Doppler Currently patient is on vancomycin and aztreonam Urine cultures/sputum cultures/blood cultures are pending Also CT chest showed significantly dilated right heart with contrast reflux into inferior vena cava and hepatic veins suggestive of right heart failure; this patient may have underlying pulmonary hypertension.-recommended echocardiogram to rule out structural heart disease (3) Metabolic encephalopathy: Patient is septic shock-with a significantly elevated BUN-suspect uremic encephalopathy Started on IV fluids and pressors Creatinine 2.8(baseline last year 1.1); electrolytes within normal limits Low bicarbonate-most likely from elevated lactic acid Continue IV hydration and monitor urine output/renal function/electrolytes Currently patient is on 3 pressors and may not tolerate hemodialysis; also boyfriend did not want any aggressive measures; at this point given pupil dilation and fixation-if she does not respond off sedation-dialysis will be futile. Reevaluate tomorrow and at that point if overall clinical picture is encouraging discussed with family about hemodialysis (4) Acute respiratory failure with hypoxia: Currently intubated on CMV tidal volume 450/PEEP 10/FiO2 100% ABG pH 7.0 CT chest-showed evidence of bibasilar infiltrates-suspicious for pneumonia Patient is covered with vancomycin/aztreonam Send for sputum cultures (5) Acute kidney injury superimposed on chronic kidney disease: Baseline creatinine 1.1 in 2022 Today creatinine is 2.8 BUN 87-likely prerenal due to hypoperfusion due to septic shock (6) Metabolic acidosis: Likely secondary to lactic acidosis Continue IV hydration and pressor support and try to maintain MAP greater than 65 (7) Acute cholecystitis: CT chest with contrast showed evidence of gallbladder wall thickening; however ultrasound gallbladder showed mild thickening with no pericholecystic fluid Currently she is covered with vancomycin and aztreonam (8) Goals of care, counseling/discussion: Patient and boyfriend at bedside. States he has been with her since 2016. Reported to continue current management and allow natural with no further aggressive interventions Plan ICU CHECKLIST: Problem list updated Verbal orders reviewed and signed Code Status: DO NOT RESUSCITATE Disposition: ICU Critically ill: Yes MD discussed with: Hospitalist, ED physician, RN, RT Analgesia: Fentanyl Glycemic Control: N/A Nutrition: N.p.o. Restraint Renewal (within 24 hrs): Yes Ulcer Prophylaxis: PPI Chemical Thromboprophylaxis: Prophylaxis: Heparin Mechanical Thromboprophylaxis: SCDs Need for Central line: Right IJ for pressors Need for Fitzgerald catheter: For urine output monitoring Critical Care Time (No Overlap): 78 min Consult Attestations 2 Medical Necessity Statement: Continue ICU care for septic shock/altered mental status/acute respiratory failure requiring mechanical ventilation/KIKA Time Spent in Patient Care: Greater than 35 minutes (>than 50% of time spent in counselling and/or direct pt care on unit) . Critical Care Time: This patient has a high probability of clinically significant, sudden or life threatening deterioration of the patient's (nervous system, pulmonary, cardiac, hepatic, endocrine) systems required my full, direct attention, the highest level of physician preparedness for urgent intervention and personal management. I managed/supervised life or organ supporting interventions that required frequent physician assessment. I devoted my full attention in the ICU to the direct care of this patient for the period of time indicated above. Time I spent with family or surrogate(s) is included only if the patient was incapable of providing necessary information or participating in decision making. This time includes the following services provided: Telemetry review Mechanical Ventilation Hemodynamic interpretation, assessment and management Review and interpretation of CXR Review and interpretation of lab values Review and interpretation of microbiologic data and culture results Review of medications and administration Review and interpretation of Nutrition requirements and management Discussion of management with other consultants and services Clinical update to family members [x] Data and vital sign review and interpretation [x] Patient assessment, examination and intervention [x] Documentation [x] Medication orders and management Time spent for teaching as well as performing procedures are billed separately and is not included in this note Critical Care Time (min): 78 Coding Level of Care Code Acute Code for Chg Fwd Diagnoses Altered mental status R41.82 Septic shock A41.9; R65.21 Metabolic encephalopathy G93.41 Acute respiratory failure with hypoxia J96.01 Acute kidney injury superimposed on chronic kidney disease N17.9; N18.9 Metabolic acidosis E87.20 Acute cholecystitis K81.0 Goals of care, counseling/discussion Z71.89 Time Spent (min) 78
[2023-09-25] MEDS: aztreonam 2,000 MG in sodium chloride 0.9% (plus) 100 ML 200 MG IV (20:57)
--- NOTE | 2023-09-25 22:27 | PC.NURSE ---
09/25/231899 -- Assumed care of patient, unresponsive at present time. Pupils 6mm and very sluggish in reaction to light stimulation. Unable to obtain blood pressure at present time. Report received from YASMANY Bradley at bedside. 1944 -- Dr. Hidalgo to bedside. Updated on inability to obtain a blood present since beginning of shift at 1899, updated on current IV medications being given and rate of levophed, vasopressin, and epinephrine. Dr. Hidalgo reports that he has already spoken to the family and notified them that she probably will not make it through the night. Family understands the grave prognosis. 2017 -- Notified [facility] of patient referral. Spoke with Geena, Referral # [id number]. 2024 -- [facility] Coordinator called and questions answered about patient. States that she will be sending a rep over to review the patients chart tonight. 2143 -- Patient in V-tach on security monitor then returns to ST with faint pulse. 2224 -- PEA noted. 2231 -- SB/SR noted on security monitor with doppler pulse obtained. Doppler blood pressure 60 at present.
[2023-09-25] MEDS: norepinephrine 4 MG/250 ML BAG 75 MG IV (23:19)
--- NOTE | 2023-09-25 23:32 | PC.NURSE ---
2300 MTS RN to bedside, Dr. Bentley to bedside. No new orders note.
[2023-09-26] VITALS (27 sets, daily range): BP systolic 45–113; BP diastolic 0–68; PULSE 104–118; RESP 16–24; TEMP 36.3–37.2; O2SAT 100
[2023-09-26 00:13] LABS: Partial Thromboplastin Time > 250.0 SECONDS (23.9-36.7)
[2023-09-26] MEDS: norepinephrine 4 MG/250 ML BAG 75 MG IV ×3 (02:48→11:07)
[2023-09-26] MEDS: metroNIDAZOLE IV 500 MG/100 ML PREMIX 100 MG IV ×2 (03:15→12:07)
[2023-09-26 03:23] LABS: Partial Thromboplastin Time > 250.0 SECONDS (23.9-36.7)
--- NOTE | 2023-09-26 03:28 | PC.NURSE ---
Notified Dr. Lund that PTT is still greater than 250, order given to continue to hold heparin and recheck PTT at 0430.
[2023-09-26] MEDS: EPINEPHrine 2.5 MG in sodium chloride 0.9% 250 ML 60.6000000000000014 MG IV ×2 (03:31→08:34)
[2023-09-26 04:24] LABS: ABG PCO2 41.3 mmHg (35-45); Arterial Blood Gas Hematocrit 34.9 % (37-47); Base Excess ABG -24.2 mmol/L (-2.0-2.0); Blood Gas Allen Test Pos; Blood Gas Operator Identificat JB; Blood Gas Sample Site Brachial, right; HCO3 ABG 8.1 mmol/L (22-26); PO2 ABG 33.6 mmHg (80.0-100.0)
[2023-09-26 04:25] LABS: Blood Gas Sample Type Venous; Blood Gas Tidal Volume 0.45; Oxygen Device VENT; PO2 FiO2 Ratio Arterial Blood 0
[2023-09-26] MEDS: vasopressin 40 UNIT/100 ML PREMIX 0.0800000000000000017 UNIT IV (05:10)
[2023-09-26] MEDS: hydrocortisone 100 mg/2 mL SDV IVP (05:41)
--- NOTE | 2023-09-26 05:44 | PC.NURSE ---
Hands swelling, removed rings x 4 and placed in bag at bedside to give to family. Rings were a silver colored band, a gold colored band, gold colored band with clear stones and a 2nd gold colored band with clear stones.
--- NOTE | 2023-09-26 06:20 | PC.NURSE ---
Notified Dr. Lund of PTT 125.3, order given to restart heparin drip per protocol from the last rate and recheck PTT in 6 hours.
[2023-09-26 07:23] LABS: Hematocrit 41.1 % (36-47); Mean Corpuscular HGB Conc 26.8 g/dL (30-55); Mean Corpuscular Hemoglobin 27.2 pg (27-33); Mean Corpuscular Volume 101.7 fl (85-98); Mean Platelet Volume 11.6 fL (7.4-10.4); Platelet Count 77 10^3/cmm (157-399); Red Blood Count 4.04 10^6/uL (3.85-5.65); Red Cell Distribution Width 21.2 % (12.1-15.1)
[2023-09-26 07:32] LABS: Albumin Level 2.2 g/dL (3.5-5.2); Alkaline Phosphatase 378 U/L (35-105); Anion Gap 29.4 (5-19); Blood Urea Nitrogen 77 mg/dL (6-20); C Reactive Protein 111.8 mg/L (0.0-4.9); Calcium 6.4 mg/dL (8.5-10.5); Chloride 97 mmol/L (98-107); Creatinine Clr Calc Pharmacy 18.6782; Globulin 2.1 g/dL (1.3-4.6); Glomerular Filtration Rate 13.6 mL/min (90-130); Glucose 265 mg/dL (65-115); Osmolality Calculated 298 mOsm/kg (285-295); Potassium 6.4 mmol/L (3.5-5.1); Sodium 128 mmol/L (136-145); Total Protein 4.3 g/dL (6.6-8.7)
[2023-09-26 07:41] LABS: Partial Thromboplastin Time 149.7 SECONDS (23.9-36.7)
[2023-09-26 07:49] LABS: Slide Review Slide Review Perform; White Blood Count 31.09 10^3/uL (3.29-11.43)
[2023-09-26 07:54] LABS: Carbon Dioxide 8 mmol/L (22-29)
[2023-09-26 07:55] LABS: Alanine Aminotransferase 2711 U/L (0-33)
[2023-09-26 08:06] LABS: Total Cells Counted 100 (0-100)
[2023-09-26 08:10] LABS: Absolute Segmented Neutrophil 24.6 10/cmm (1.6-7.1); Band Neutrophils Absolute 1.9 10^3/cmm (0.0-1.2); Eosinophils 0 %; Lymphocytes 11 %; Lymphocytes Absolute 3.4 10^3/cmm (1.2-3.4); Monocytes Absolute 1.2 10^3/cmm (0.1-0.6); Segmented Neutrophils 79 %
[2023-09-26 08:11] LABS: Absolute Neutrophil 26.4 10^3/cmm (1.4-6.5); Anisocytosis 1+; Corrected White Blood Count 26.8 10^3/cmm (4.8-10.8); Giant Platelets 2+; Macrocytosis 1+; Platelet Estimate Decreased (Normal); Poikilocytosis 1+; Polychromasia 1+
[2023-09-26] MEDS: pantoprazole 40 mg SDV IVP (08:34)
[2023-09-26] MEDS: sodium chloride 0.9% 1,000 ML 75 ML IV (08:34)
[2023-09-26] MEDS: sodium bicarbonate 8.4% 1 mEq/mL 50mL Syr 100 MEQ IVP (08:34)
[2023-09-26 09:05] LABS: Reflex Lactate Order REFLEX LACTIC ORDERD
--- NOTE | 2023-09-26 09:07 | CTR_ITS ---
PROCEDURE INFORMATION: Exam: CT Head Without Contrast Exam date and time: 09/26/2023 9:38 AM Age: 53 years old Clinical indication: Other: Neuro changes TECHNIQUE: Imaging protocol: Computed tomography of the head without contrast. Radiation optimization: All CT scans at this facility use at least one of these dose optimization techniques: automated exposure control; mA and/or kV adjustment per patient size (includes targeted exams where dose is matched to clinical indication); or iterative reconstruction. COMPARISON: 1. CT head thrombolytic [id number] 09/25/2023 10:[address] head wo con* [id number] 09/21/2021 2:[address] angio headneck* [id number] 10/09/2017 3:[address] head wo con* [id number] 10/09/2017 3:04 PM RADIATION DOSE METRICS: Total DLP (mGy-cm): 1034.35 FINDINGS: Brain: Prominent left MCA territory encephalomalacia again noted. Prominent white matter edema in the left cerebrum similar to prior exam. No acute intracranial hemorrhage identified. No new large territorial ischemic infarcts compared to recent prior exam. Mild diffuse cerebral atrophy. Cerebral ventricles: Ex vacuo dilatation of the left lateral ventricle similar to prior exam. Paranasal sinuses: The visualized sinuses are unremarkable. Mastoid air cells: The visualized mastoid air cells are well aerated. Bones: Unremarkable. No acute fracture. Soft tissues: Unremarkable. CT/CT head wo con* [id number] IMPRESSION: No significant change from prior exam.
[2023-09-26] MEDS: sodium bicarbonate 150 MEQ in dextrose 5% 1,000 ML 100 MEQ IV (09:10)
--- NOTE | 2023-09-26 09:50 | CTR_ITS ---
PROCEDURE INFORMATION: Exam: CT Chest Without Contrast; Diagnostic Exam date and time: 09/26/2023 9:43 AM Age: 53 years old Clinical indication: Other: Sepsis, cholecysitis; Shortness of breath TECHNIQUE: Imaging protocol: Diagnostic computed tomography of the chest without contrast. Radiation optimization: All CT scans at this facility use at least one of these dose optimization techniques: automated exposure control; mA and/or kV adjustment per patient size (includes targeted exams where dose is matched to clinical indication); or iterative reconstruction. COMPARISON: CT angio chest PE protcl [id number] 09/25/2023 3:25 PM RADIATION DOSE METRICS: Total DLP (mGy-cm): 982.79 FINDINGS: Tubes, catheters and devices: Endotracheal tube 1 cm above the shaan. Right-sided central venous line noted with the distal tip in the right atrium. Lungs: Increasing bibasilar consolidation with interval now near complete consolidation of the left lower lobe. Stable patchy ground-glass opacities in the upper lobes. Pleural spaces: Small bilateral pleural effusions, slightly worse on the right versus the left common both increased compared to prior exam. Heart: Air noted in the nondependent portion of the right atrium may be related to intravenous access. Coronary arteries: Coronary artery calcifications noted. Lymph nodes: Unremarkable. No enlarged lymph nodes. Vasculature: Unremarkable. Bones/joints: Unremarkable. Soft tissues: Unremarkable. PROCEDURE INFORMATION: Exam: CT Abdomen And Pelvis Without Contrast Exam date and time: 09/26/2023 9:43 AM Age: 53 years old Clinical indication: Other: Sepsis, cholecysitis; Shortness of breath TECHNIQUE: Imaging protocol: Computed tomography of the abdomen and pelvis without contrast. Radiation optimization: All CT scans at this facility use at least one of these dose optimization techniques: automated exposure control; mA and/or kV adjustment per patient size (includes targeted exams where dose is matched to clinical indication); or iterative reconstruction. COMPARISON: CT abdomen pelvis wo con [id number] 09/25/2023 10:59 AM RADIATION DOSE METRICS: Total DLP (mGy-cm): 982.79 FINDINGS: Liver: The liver is normal in size and contour. Gallbladder and bile ducts: Significant interval prominent gallbladder wall thickening again noted. Dense material within the gallbladder lumen. Interval development of linear branching pattern of density, biliary sludge or contrast, noted possible within the biliary system (axial series 9, image [id number]), possibly vascular. Pancreas: The pancreas appears normal. Spleen: The spleen appears normal. Adrenal glands: The adrenals appear normal. Kidneys and ureters: Retained contrast within the kidneys and renal collecting systems likely related to recent contrasted exam. Stomach and bowel: Prominent submucosal fat in the colon likely related to chronic inflammatory condition. Interval increased wall thickening in the colon concerning for possible colitis. Appendix: The appendix appears normal. Intraperitoneal space: Interval development of dense abdominopelvic fluid concerning for hemoperitoneum. Vasculature: The aorta is nonaneurysmal. The IVC appears normal. Lymph nodes: There are no enlarged lymph nodes. Urinary bladder: Fitzgerald catheter noted within the urinary bladder which is non-distended. Reproductive: Unremarkable as visualized. Bones/joints: Unremarkable. Soft tissues: Unremarkable. CT/[place] [id number] IMPRESSION: 1. Endotracheal tube 1 cm above the shaan. 2. Small bilateral pleural effusions, slightly worse on the right versus the left common both increased compared to prior exam. 3. Increasing bibasilar consolidation with interval now near complete consolidation of the left lower lobe. Stable patchy ground-glass opacities in the upper lobes. IMPRESSION: 1. Significant interval prominent gallbladder wall thickening again noted. Dense material within the gallbladder lumen. Findings concerning for possible cholecystitis. Recommend clinical correlation. 2. Interval development of dense abdominopelvic fluid concerning for hemoperitoneum. 3. Interval development of linear branching pattern of density, biliary sludge or contrast, noted possible within the biliary system (axial series 9, image [id number]), possibly vascular. This is of indeterminate clinical significance. COMMENTS: Evaluation of solid organs and vascular structures is limited as no IV contrast was administered.
[2023-09-26 10:00] LABS: Aspartate Amino Transferase 8997 U/L (0-32)
--- NOTE | 2023-09-26 10:33 | PC.CHAP ---
Pastoral Care Encounter/Spiritual Assessment Type of Contact [] Declined store stock associate visit [] Patient/Family/Request visit [] Outpatient visit [] Follow-up visit [] Physician referral [] Code/Alert [] Routine visit [x] Staff referral [] Actively dying [] Patient sleeping [] Family support [] [] Out of room [] Palliative care [] [] Receiving care in room [] Pre-surgical visit [] Trauma [] Long length of stay [x] ICU visit [] Other: Relational/Emotional Strength [] Patient feels connected with others/family/visitors/staff [] Distress [] Loneliness/isolation [] Abandonment Spirituality of Patient [] Person of Aaliyah [] Attends Sabianism of their Aaliyah [] Believes in Prayer [] Reads Bible or Mu-Ism materials [] There are Spiritual issues to be addressed Adjunct Political Science Instructor Interventions [x] Prayer [] Active listening [] Non-anxious presence [] Spiritual/emotional support [] Crisis/trauma care [] Spiritual counseling [] Bereavement support [] Provided bereavement packet [] Provided Bible/devotional materials [] Provided toy/stuffed animal, coloring book to patient or family member [] Provided Communion [] Anointing/[place] [] Salvation [] Completed spiritual assessment [] Other: Impact on Illness or Injury [] Angry [] Fearful [] Anxious [] Often cries [] Exhaustion [] Unable to work [] Unable to attend orthodoxy [] Unable to walk/stand [] Unable to read [] Unable to drive [] Unable to eat/drink [] Unable to sleep [] Unable to be with family [] Patient intubated [] Other: Summary no family present... will set with patient ... Time spent with patient
[2023-09-26] MEDS: AZTREONAM IV (11:00)
[2023-09-26] MEDS: SODIUM CHLORIDE 0.9% IV (11:00)
--- NOTE | 2023-09-26 11:27 | P.CONIM_ITS ---
Providers/Reason For Consult 2 Consulting Physician/Specialty*: Dr. Maximo Irving, DO/General surgery Reason for Consult*: Possible cholecystitis Attending Physician: Tiffany Jimenez MD Primary Care Provider: MARIZOL Dye History of Present Illness History of Present Illness Erin Salazar is a 53 year old female who is currently intubated and unresponsive. She recently had a stroke and presented to the hospital in shock. On examination today she is intubated and nonresponsive. Imaging of the abdomen last night showed some concern for cholecystitis. Imaging of the brain showed cerebral edema. HPI and review of systems are limited secondary to patient's unresponsive status. Review of Systems 2 General: Reports: ROS unobtainable due to medical condition Medications/Allergies Home Medications Medication Instructions Recorded Confirmed Last Taken Type custom molded AFO to the right #1 ea 09/13/20 09/26/23 Unknown Rx custom molded AFO to the right #1 ea 09/13/20 09/26/23 Unknown Rx wheelchair #1 ea 07/25/21 09/26/23 Unknown Rx Power Mobility Wheelchair #1 ea 02/21/23 09/26/23 Unknown Rx fluconazole 150 mg tablet See Rx Instructions .Route 07/29/23 09/26/23 Unknown Rx .COMPLEX #7 tabs atorvastatin 80 mg tablet 80 mg PO DAILY 09/25/23 09/26/23 Unknown History fluoxetine 10 mg capsule 10 mg PO DAILY 09/25/23 09/26/23 Unknown History fluoxetine 20 mg capsule 20 mg PO DAILY 09/25/23 09/26/23 Unknown History metoprolol tartrate 25 mg tablet 25 mg PO DAILY 09/25/23 09/26/23 Unknown History nystatin 100,000 unit/gram topical 1 applic topical BID 09/25/23 09/26/23 Unknown History powder (Nystop) Allergies Allergy/AdvReac Type Severity Reaction Status Date / Time Penicillins Allergy Mild ALGY-Hives Verified 06/03/23 16:22 Current Medications Generic Name Dose Route Start Last Admin Trade Name Freq PRN Reason Stop Dose Admin Heparin Sodium (Porcine) 0 unit 09/25/23 16:36 09/25/23 17:11 Heparin 5,000 Unit/Ml Inj 1 Ml IV 4,000 unit PRN PRN Administration Heparin weight-base protocol Protocol Hydrocortisone Sodium Succinate 100 mg 09/25/23 18:15 09/26/23 05:41 Hydrocortisone 100 Mg/2 Ml Sdv IVP 100 mg Q12H MARVIN Administration Norepinephrine Bitartrate 4 mg in 250 mls @ 0 mls/hr 09/25/23 12:45 09/26/23 11:07 Levophed IV 20 mcg/min .Q0M MARVIN 75 mls/hr Administration Protocol Per Protocol Vasopressin 40 unit in 100 mls @ 0.075 mls/min 09/25/23 14:45 09/26/23 05:10 Vasostrict IV 0.08 mls/min CONT MARVIN Administration Epinephrine HCl 2.5 mg/ Sodium 252.5 mls @ 0 mls/hr 09/25/23 15:45 09/26/23 08:34 Chloride IV 10 mcg/min .Q0M MARVIN 60.6 mls/hr Administration Protocol Per Protocol Heparin Sodium/Sodium Chloride 25,000 unit in 500 mls @ 0 mls/hr 09/25/23 16:45 09/26/23 06:16 Heparin Drip IV 11.16 unit/kg/hr .Q0M MARVIN 16 mls/hr Titration Protocol Per Protocol Sodium Chloride 1,000 mls @ 75 mls/hr 09/25/23 18:15 09/26/23 08:34 Sodium Chloride 0.9% IV 75 mls/hr .[id number] MARVIN Administration Metronidazole 500 mg in 100 mls @ 100 mls/hr 09/25/23 18:15 09/26/23 04:20 Flagyl Iv IV Infused Q8H MARVIN Infusion Protocol Vancomycin/PEG/NADA/Lysine/Water 1,250 mg in 250 mls @ 250 mls/hr 09/25/23 18:30 09/25/23 20:40 Vancocin IV Infused Q48H MARVIN Infusion Sodium Bicarbonate 150 meq/ 1,150 mls @ 100 mls/hr 09/26/23 09:00 09/26/23 09:10 Dextrose IV 100 mls/hr .[id number] MARVIN Administration Aztreonam 1,000 mg/ Sodium 100 mls @ 200 mls/hr 09/26/23 10:15 09/26/23 11:00 Chloride IV 200 mls/hr Q12H MARVIN Administration Protocol Pantoprazole Sodium 40 mg 09/26/23 09:00 09/26/23 08:34 Pantoprazole 40 Mg Sdv IVP 40 mg BID MARVIN Administration PFSH Acute 2 PFSH: Medical History Hospice care patient Cholangitis Abdominal pain Goals of care, counseling/discussion Altered mental status Metabolic encephalopathy Acute kidney injury superimposed on chronic kidney disease Metabolic acidosis Septic shock Ascending cholangitis Acute respiratory failure with hypoxia Septic shock Acute cholecystitis Incontinence 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, old, aphasia Family History Mother Stroke Social History Smoking and tobacco/nicotine status: current every day tobacco/nicotine user Quit status (tobacco/nicotine): not considering quitting Vitals/I&O/Wt Last Vital Signs Temp 99.0 F 09/26/23 10:00 Pulse 110 H 09/26/23 10:00 Resp 24 H 09/26/23 10:50 BP 66/0 09/26/23 10:58 Pulse Ox 100 09/26/23 03:55 O2 Del Method Mechanical Ventilation 09/26/23 08:00 FiO2 100 09/26/23 10:50 09/25/23 09/26/23 09/26/23 22:59 06:59 14:59 Intake Total 2392.750 / 3621.000 1061.066 / 4682.066 1448.75 / 1448.75 Output Total 100 / 100 30 / 130 Balance 2292.750 / 3521.000 1031.066 / 4552.066 1448.75 / 1448.75 Weight last 48 hrs Weight 174 lb Weight 165 lb Weight 158 lb Physical Exam 2 Narrative: General : Patient is well developed , intubated and nonresponsive Head : Normal cephalic, a-traumatic. Ears : Pinnae and external canal are normal. Hearing is normal. Eyes : Pupils fixed and nonresponsive, Sclera and injection are normal. No conjunctival discharge. Nose : Mucous membranes are without erythema. Throat : buccal mucosa is normal, gums are without significant recession or hypertrophy. Lungs : Equal chest rise bilaterally, no use of accessory muscles, trachea is midline. Cor : Rate and rhythm are normal. Abdomen : Soft, ND, no guarding Extremities : No edema, no cyanosis or clubbing, dorsalis pedis pulses are present bilaterally, non-tender to palpation of calves. Upper extremities are normal bilaterally. Back : non-tender to palpation, no CVA tenderness. 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 It is not impossible that she has ascending cholangitis. Family is considering terminal wean. I will respect their wishes. 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
--- NOTE | 2023-09-26 12:09 | P.PN_ITS ---
Subjective 2 Subjective: Patient has worsened significantly Repeat CT head showing cerebral edema Patient is not on sedative, not able to follow commands Jaundice, worsening leukocytosis worsening acidosis Continue bicarb drip Continue vasopressin's Levophed epinephrine She is on heparin drip along with IV fluids Positive fluid balance Adequate urine output CT abdomen pelvis consistent with hemoperitoneum questionable shock bowel/ischemia Worsening leukocytosis Gallbladder wall thickening has worsened Patient carries a guarded prognosis Echo and venous Doppler pending Thrombocytopenia likely related to sepsis ATN related to sepsis Worsening acidosis Vitals/I&O/Wt Last Vital Signs Temp 98.8 F 09/26/23 12:00 Pulse 107 H 09/26/23 12:00 Resp 24 H 09/26/23 10:50 BP 64/0 09/26/23 12:00 Pulse Ox 100 09/26/23 03:55 O2 Del Method Mechanical Ventilation 09/26/23 08:00 FiO2 100 09/26/23 10:50 09/25/23 09/26/23 09/26/23 22:59 06:59 14:59 Intake Total 2392.750 / 3621.000 1061.066 / 4682.066 1448.75 / 1448.75 Output Total 100 / 100 30 / 130 Balance 2292.750 / 3521.000 1031.066 / 4552.066 1448.75 / 1448.75 Weight last 48 hrs Weight 78.925 kg Weight 74.843 kg Weight 71.668 kg Physical Exam 2 Narrative: Patient not able to follow commands Skin mottling present Scleral icterus Asymmetrical pupils Right pupil is dilated as compared to left Nonreactive to light Patient is showing right to left nystagmus as well Poor urine output Urinary Catheter Management: Fitzgerald: Cath Placed During This Visit: yes Reason for Continuing Indwelling Catheter: Accurate Measurement of Urinary Output in Critically Ill Patients Urinary Catheter Date of Insertion: 09/25/23 Urinary Catheter Time of Insertion: 11:50 Data 09/26/23 07:01 09/26/23 07:01 Micro: Microbiology 09/25/23 14:14 Gram Stain - Final Sputum - Endotracheal Tube Aspirate 09/25/23 12:07 Blood Culture - Preliminary Blood SPECIMEN COLLECTED 09/25/23 12:09 Blood Culture - Preliminary Blood SPECIMEN COLLECTED A&P Assessment and plan (1) Cholangitis: (2) Goals of care, counseling/discussion: (3) Acute cholecystitis: (4) Abdominal pain: Qualifiers: Abdominal location: right upper quadrant Qualified Code(s): R10.11 - Right upper quadrant pain (5) Acute kidney injury superimposed on chronic kidney disease: (6) Metabolic acidosis: (7) Incontinence: Qualifiers: Incontinence type: urinary Urinary Incontinence type: functional incontinence Qualified Code(s): R39.81 - Functional urinary incontinence (8) Septic shock: (9) Ascending cholangitis: (10) Septic shock: (11) CVA, old, aphasia: (12) Metabolic encephalopathy: (13) Altered mental status: (14) Acute respiratory failure with hypoxia: (15) Hospice care patient: Plan Septic shock Severe metabolic acidosis without any improvement Bicarb drip was continued since admission Patient has been on 3 vasopressors since admission Ascending cholangitis with cholecystitis Currently on antibiotics Not a candidate for surgical intervention at this point Patient could not be transferred yesterday because she became unstable and required ICU admission Cerebral edema present on CT head patient is not following commands despite being off sedation, she is trying right to left disconjugate eye movement Not able to follow commands Plantar response equivocal Respiratory failure requiring mechanical ventilation in the ER Concern for thromboembolic disease On heparin drip Ischemic colitis Secondary to septic shock Hemoperitoneum noted as well ATN Secondary to septic shock Inadequate urine output Positive fluid balance Patient is not making enough urine Creatinine worsening Goals of care discussed with significant other Aneudy: Considering active disease, septic shock, life support, 3 pressors, cerebral edema evident on CT head with worsening condition, they have decided to pursue hospice care and terminally extubate Ms. Salazar I have informed the ICU nurse who would call significant other to be at the bedside because brother is a tow truck operator who want to be able to come to [place] until midnight I have informed Dr. Irving as well regarding hospice care with plan to terminally extubate the patient Attestations 2 Medical Necessity Statement*: Continue medical management Coding Level of Care Code Critical Care >/= 30 minutes Critical care time (in minutes): 60 The high probability of a clinically significant, sudden or life threatening deterioration, as referenced in this documentation, required my full and direct attention, intervention and personal management. The critical care time shown is in addition to time spent performing any reported separately billable procedures and includes the following: [x] Data and vital sign review and interpretation [x ] Patient assessment, examination and intervention [x] Medication orders and management [x] Patient/Family updates as able [x] Care Coordination and Documentation. Diagnoses Cholangitis K83.09 Goals of care, counseling/discussion Z71.89 Acute cholecystitis K81.0 Right upper quadrant abdominal pain R10.11 Abdominal location: right upper quadrant Acute kidney injury superimposed on chronic kidney disease N17.9; N18.9 Metabolic acidosis E87.20 Functional urinary incontinence R39.81 Incontinence type: urinary Urinary Incontinence type: functional incontinence Septic shock A41.9; R65.21 Ascending cholangitis K83.09 CVA, old, aphasia I69.320 Metabolic encephalopathy G93.41 Altered mental status R41.82 Acute respiratory failure with hypoxia J96.01 Hospice care patient Z51.5
--- NOTE | 2023-09-26 12:55 | PC.NURSE ---
Extubation Extubated at 1240 per RT. IV medications stopped. time of 1247. Dr. Jimenez and family notified.
--- NOTE | 2023-09-26 13:02 | PM.DDS ---
Discharge Providers DDS Date of Admission: 09/25/23 17:35 Date Summary Completed: 09/26/23 Attending Provider at Admission: Radha Victoria MD Attending Provider at Discharge: Tiffany Jimenez MD Primary Care Provider: MARIZOL Dye Diagnoses Hospital Diagnoses (1) Cholangitis: (2) Goals of care, counseling/discussion: (3) Acute cholecystitis: (4) Abdominal pain: Qualifiers: Abdominal location: right upper quadrant Qualified Code(s): R10.11 - Right upper quadrant pain (5) Acute kidney injury superimposed on chronic kidney disease: (6) Metabolic acidosis: (7) Incontinence: Qualifiers: Incontinence type: urinary Urinary Incontinence type: functional incontinence Qualified Code(s): R39.81 - Functional urinary incontinence (8) Septic shock: (9) Ascending cholangitis: (10) CVA, old, aphasia: (11) Metabolic encephalopathy: (12) Altered mental status: (13) Acute respiratory failure with hypoxia: (14) Hospice care patient: Reason for Visit Reason for Visit Abd Pain Summary Summary Summary: 53-year female who was admitted for management evaluation of septic shock, possible source of infection was cholecystitis with concern related to cholangitis, she deteriorated very quickly required intubation in the ER, she was put on 3 pressors, we were not able to transfer her because she was unstable, she required 3 vasopressors, required bicarb drip multiple antibiotics IV fluids, she went into multiorgan failure with ATN, positive fluid balance, ischemic bowel, family decided to make her hospice care and terminally extubate, patient at 1247 after extubation at 1240 on 09/26/2023 Additional Data Confirmation of as documented by pronouncing clinician: no pulse, no respirations, no heart sounds and pupils fixed and dilated Family: contacted Additional persons at bedside: nursing staff Attending/PCP notified?: I am attending Was code activated?: No Autopsy requested?: No Advance directives?: No Hospice patient?: Yes Discharge Plan Discharge Patient Disposition: Condition: Stable Prescriptions: No Action (DME) custom molded AFO to the right See Rx Instructions .Route .MEDSUPPLY Qty: 1 0RF Rx Instructions: As directed by [facility] (DME) custom molded AFO to the right See Rx Instructions .Route .MEDSUPPLY Qty: 1 0RF Rx Instructions: As directed by [facility] (DME) Power Mobility Wheelchair See Rx Instructions .Route .MEDSUPPLY Qty: 1 0RF Rx Instructions: As directed (DME) wheelchair See Rx Instructions .Route .MEDSUPPLY Qty: 1 0RF Rx Instructions: As directed fluconazole 150 mg tablet See Rx Instructions .ROUTE .COMPLEX Qty: 7 0RF Dose Instruction: TAKE 1 TABLET BY MOUTH EVERY 3 DAYS FOR 2 DOSES Rx Instructions: TAKE 1 TABLET BY MOUTH EVERY 3 DAYS atorvastatin 80 mg tablet 80 mg PO DAILY fluoxetine 10 mg capsule 10 mg PO DAILY Rx Instructions: along with 20 mg to =30mg total Nystop 100,000 unit/gram powder 1 applic topical BID Rx Instructions: APPLY 1 APPLICATION TOPICALLY TWICE DAILY fluoxetine 20 mg capsule 20 mg PO DAILY Rx Instructions: along with 10 mg to = 30 mg total. metoprolol tartrate 25 mg tablet 25 mg PO DAILY Referrals: Vida Hollingsworth FNP [Primary Care Provider] - Patient Instructions: Opioid Safety DS Attestations Time Spent in /Discharge Care*: less than 30 min Quality - AMI: AMI present?: No Quality - Stroke: CVA present?: No Quality - VTE: VTE present?: No Coding Level of Care Code Acute Code for [facility] Diagnoses Cholangitis K83.09 Goals of care, counseling/discussion Z71.89 Acute cholecystitis K81.0 Right upper quadrant abdominal pain R10.11 Abdominal location: right upper quadrant Acute kidney injury superimposed on chronic kidney disease N17.9; N18.9 Metabolic acidosis E87.20 Functional urinary incontinence R39.81 Incontinence type: urinary Urinary Incontinence type: functional incontinence Septic shock A41.9; R65.21 Ascending cholangitis K83.09 CVA, old, aphasia I69.320 Metabolic encephalopathy G93.41 Altered mental status R41.82 Acute respiratory failure with hypoxia J96.01 Hospice care patient Z51.5
[2023-09-26 13:26] LABS: Partial Thromboplastin Time > 250.0 SECONDS (23.9-36.7)
--- NOTE | 2023-09-26 13:46 | PC.NURSE ---
Carmita from [facility] called and pt is not a candidate for tissue. Referral sent to [facility].
--- NOTE | 2023-09-26 15:21 | PC.NURSE ---
[facility], called to release patient to Home.
--- NOTE | 2023-09-26 16:30 | PC.NURSE ---
[facility] here for body transfer. Clothing and jewerly sent with body to the home.
== END 2023-09-26 16:30 | disposition expired | DRG 871 ==
LOC: ER 17:28 → ICU 17:35
PROVIDERS: Internal Medicine Pulmonary Disease; Student in an Organized Health Care Education/Training Program; Admitting Provider Internal Medicine; Emergency Provider Family Medicine; PCP Nurse Practitioner Family; Visit Provider Internal Medicine
DX: A41.9 Sepsis, unspecified organism (principal); G93.41 Metabolic encephalopathy; R65.21 Severe sepsis with septic shock; N17.0 Acute kidney failure with tubular necrosis; J96.01 Acute respiratory failure with hypoxia; K66.1 Hemoperitoneum; G93.6 Cerebral edema; E87.20 Acidosis, unspecified; K83.09 Other cholangitis; K81.0 Acute cholecystitis; I69.351 Hemiplegia and hemiparesis following cerebral infarction affecting right dominant side; F17.210 Nicotine dependence, cigarettes, uncomplicated; Z66 Do not resuscitate; Z51.5 Encounter for palliative care; R39.81 Functional urinary incontinence; D69.59 Other secondary thrombocytopenia; Z99.3 Dependence on wheelchair; I48.91 Unspecified atrial fibrillation; I12.9 Hypertensive chronic kidney disease with stage 1 through stage 4 chronic kidney disease, or unspecified chronic kidney disease; N18.9 Chronic kidney disease, unspecified; I69.320 Aphasia following cerebral infarction
CPT/HCPCS: 36415; 36416; 36592; 36600; 51702; 70450; 71045; 71250; 71275; 74176; 76705; 80051; 80053; 80306; 81001; 82330; 82803; 82805; 82962; 83605; 83690; 85007; 85025; 85610; 85730; 86140; 87040; 87070; 87205; 93005; 94003; 94799; 96365; 96366; 96367; 96368; 96375; 99291; 99292; C1751; C9113; J0171; J0612; J0744; J1644; J1720; J2060; J2598; J3370; J3490; J7030; J7050; J7070; Q9967